=== PATIENT | female | born 1955 | race Caucasian/White ===

== ENCOUNTER → 2016-06-11 | Outpatient (CLI) | payer BC, MEDICARE ==
[~2016-06-11] MED LIST: ALBU8.5H INH; AMLO10TA62 PO; CETI10CA19 PO; CYCL-83 PO; FLUT1DIS3 ORAL INH; IOHEXOL 300 MG/ML 100ml INJECTION ONE; MELA3TAB30 PO; NORMAL SALINE 100 ML ONE; OXYC-541 PO; SALINE FLUSH 10ml SYRINGE ONE; SERT-88 PO
[2016-06-11 08:36] LABS: HCT - HEMATOCRIT 41.3 % (36-46); HGB - HEMOGLOBIN 13.5 GM/DL (12-16); MEAN CORPUSCULAR HGB 31.8 UUG (26-34); MEAN CORPUSCULAR HGB CONC(MCHC 32.7 GM/DL (31-37); MEAN CORPUSCULAR VOLUME 97.4 UM3 (80-100); MEAN PLATELET VOLUME 9.6 UM3 (9.4-12.4); RED BLOOD COUNT 4.24 M/MM3 (4.00-5.20); WBC - WHITE BLOOD COUNT 8.9 T/MM3 (4.5-11.0)
[2016-06-11 08:46] LABS: ALBUMIN 4.1 G/DL (3.5-5.0); ALBUMIN/GLOBULIN RATIO 1.3 RATIO (1.1-2.2); ALKALINE PHOSPHATASE 101 U/L (38-126); ALT (SGPT) 40 U/L (9-52); ANION GAP 13 MEQ/L (5-15); AST (SGOT) 25 U/L (14-36); BUN/CREATININE RATIO 26 RATIO (6-26); CALCIUM 9.6 MG/DL (8.4-10.2); CHLORIDE 104 MEQ/L (98-107); CO2 - CARBON DIOXIDE 28 MEQ/L (22-30); CREATININE 0.7 MG/DL (0.7-1.2); GLOMERULAR FILTRATION RATE 85; GLUCOSE 94 MG/DL (65-110); LDH 388 U/L (313-618); SODIUM 145 MEQ/L (134-144); TOTAL PROTEIN 7.3 G/DL (6.3-8.2)
[2016-06-11 09:35] LABS: ANISOCYTOSIS 1+; BAND NEUTROPHILS # 0.1 T/MM3; BASOPHILS # (MANUAL) 0.2 T/MM3 (0-0.2); EOSINOPHILS # (MANUAL) 0.2 T/MM3 (0-0.5); LYMPHOCYTES # (MANUAL) 1.7 T/MM3 (1-4.8); MONOCYTES # (MANUAL) 0.5 T/MM3 (0-0.8); NEUTROPHILS #(MANUAL)-ABSOLUTE 6.2 T/MM3 (1.8-7.7); TOTAL CELLS COUNTED 100 %
--- NOTE | 2016-06-11 10:21 | DI ---
Indication: ITS.REASON: C01 Malignant neoplasm of base of tongue PROCEDURE: CT NECK/CHEST/ABD/PELVIS W/C: Encounter: Subsequent Comparison: CT neck, chest, abdomen and pelvis dated December 05, 2015 Technique: Axial CT images were performed through the neck, chest, abdomen and pelvis after the administration of intravenous contrast. Coronal and sagittal two-dimensional reformats. Automated Exposure Control and Iterative Reconstruction dose reducing techniques were utilized. Contrast: Omnipaque 300 99 mL Findings: Neck: Thyroid gland appears normal. Surgical clips in the right neck and postoperative changes. Persistent region of asymmetric enhancement in the right tongue base area measuring 1.3 cm in diameter, stable from the prior exam. No new or enlarging adenopathy identified within the neck. Salivary glands appear stable. Skull base is unremarkable. Skeletal structures are unchanged. Chest: Severe emphysema. No pneumonia, pleural effusion or pneumothorax. No new pulmonary nodules or masses. Calcified granuloma in the left lower lobe. Large left breast calcification. No axillary or mediastinal adenopathy. Heart size is normal. No pericardial effusion. Abdomen/pelvis: The liver is stable and normal. The gallbladder, spleen, pancreas and adrenal glands are within normal limits. Kidneys are unchanged. Scattered atherosclerotic plaque in the arterial vasculature. No obvious abdominal or pelvic adenopathy. Evaluation is somewhat limited due to the lack of intra-abdominal fat. Bladder is stable in appearance. Uterus is surgically absent. No free fluid. No evidence of a bowel obstruction. Bone windows show degenerative changes in the spine but no lytic or blastic osseous lesion. Impression: Stable exam without evidence of new or worsening metastatic disease in the neck, chest, abdomen or pelvis. .
== END ==
LOC: IMA 08:10
PROVIDERS: ATTEND Internal Medicine Hematology & Oncology
DX: C01 Malignant neoplasm of base of tongue (principal); J43.9 Emphysema, unspecified; Z98.890 Other specified postprocedural states
CPT/HCPCS: 36415; 70491; 71260; 74177; 80053; 83615; 85025; J7050; Q9967

== ENCOUNTER 2016-06-30 16:29 | Emergency (ER) | payer BC, MEDICARE ==
[~2016-06-30] VITALS: Ht 147.3 cm; Wt 66.6 kg
[~2016-06-30 16:29] MED LIST changes: -IOHEXOL 300 MG/ML 100ml INJECTION ONE; -NORMAL SALINE 100 ML ONE; -SALINE FLUSH 10ml SYRINGE ONE
[2016-06-30 16:33] VITALS: TEMP 98.5; Ht 147.3 cm; Wt 66.6 kg
--- OUTSIDE RECORDS SUMMARY | 2016-06-30 16:34 | XMS REPORT | Referral Summary ---
Author Author [facility] Organization [facility] Address Unknown Phone Unavailable Care Team Providers Care Composing Room Supervisor Name Role Phone Nigel Crowley Primary Care Physician [phone] Encounter VC Date(s): 07/04/15 - 07/04/15 [facility], [address] [place] [id number] Discharge Disposition: 01-Home or Self Care Attending Physician: Jeffrey Crowley MD Admitting Physician: Jeffrey Crowley MD Vital Signs Most recent to 1 oldest [Reference Range]: Peripheral Pulse 92 bpm Rate [60-100 bpm] (07/04/15 11:30 AM) Blood Pressure 100/76 mmHg [90-140/60-90 mmHg] (07/04/15 11:30 AM) Mean Arterial 84 mmHg Pressure, Cuff (07/04/15 11:30 AM) SpO2 99 % (07/04/15 11:30 AM) Problem List Condition Effective Dates Status Health Status Informant Anginal Active pain(Confirmed) Arthritis(Confirmed) Active ASTHMA(Confirmed) Resolved breast Resolved cancer(Confirmed) Bronchitis(Confirmed Resolved ) RT. Cervical 06/06/13 Active Adenopathy(Confirmed )1 COPD (chronic Active obstructive pulmonary disease)(Confirmed) Ovarian 04/1996 Active cyst(Confirmed)2, 3 Depression(Confirmed Resolved ) Hay fever(Confirmed) Resolved High blood Resolved pressure(Confirmed) Breast Active cancer(Confirmed)4 Cancer of Active neck(Confirmed) Acute pain in right Active eye(Confirmed) Stroke(Confirmed) Resolved 1RT.Cervical lymph node biobsy/Informed pt. set up to see ENT/ pt.appt. with 06/07/2023 2endometriosis seeding 3March 1996 BSO 4October 1996 Left breast lumpectomy Allergies, Adverse Reactions, Alerts Substance Reaction Severity Status amoxicillin Active amoxicillin-clavulanate Active celecoxib Active Medications Advair Diskus 250 mcg-50 mcg inhalation powder 1 puffs, Inhalation, BID, # 28 Each, 0 Refill(s), Pharmacy: [facility] [id number] Start Date: 04/17/15 Status: Ordered amLODIPine 10 mg oral tablet 10 mg 1 tabs, Oral, Daily, MUST SCHEDULE A FOLLOW UP APPOINTMENT FOR FURTHER REFILLS, # 90 tabs, 0 Refill(s), Pharmacy: [facility] [id number], 1 tabs Oral Daily,Instr:MUST SCHEDULE A FOLLOW UP APPOINTMENT FOR FURTHER REFILLS Start Date: 05/21/15 Status: Ordered Bactrim DS 800 mg-160 mg oral tablet 1 tabs, Oral, BID, X 10 days, # 20 tabs, 0 Refill(s), Pharmacy: [facility] [id number] Start Date: 07/04/15 Stop Date: 07/14/15 Status: Ordered cyclobenzaprine 10 mg oral tablet See Instructions, TAKE ONE TABLET BY MOUTH TWICE DAILY, # 60 tabs, 1 Refill(s), Pharmacy: [facility] [id number], TAKE ONE TABLET BY MOUTH TWICE DAILY Start Date: 03/21/15 Status: Ordered Melatonin Bedtime (once a day), as needed for insomnia, 0 Refill(s) Start Date: 02/07/15 Status: Ordered oxyCODONE 5 mg oral tablet 5 mg 1 tabs, Oral, q6hr, as needed for pain, # 60 tabs, 0 Refill(s) Start Date: 05/28/15 Status: Ordered ProAir HFA 90 mcg/inh inhalation aerosol 2 puffs, Inhalation, QID, as needed for wheezing, # 2 Each, 0 Refill(s), Pharmacy: [facility] [id number] Start Date: 04/04/15 Status: Ordered sertraline 100 mg oral tablet See Instructions, TAKE ONE TABLET BY MOUTH ONCE DAILY, # 30 tabs, eRx: [facility] [id number], TAKE ONE TABLET BY MOUTH ONCE DAILY Start Date: 07/04/15 Status: Ordered sertraline 100 mg oral tablet 100 mg 1 tabs, Oral, Daily, # 30 tabs, 3 Refill(s), Pharmacy: [facility] [id number], 1 tabs Oral Daily Start Date: 03/05/15 Status: Ordered ZyrTEC 10 mg oral tablet 1 tabs, Oral, Daily, # 30 tabs, 0 Refill(s) Start Date: 09/28/13 Status: Ordered Results Urinalysis Most recent to 1 oldest [Reference Range]: UA Color Yellow (07/04/15 11:27 AM) UA Appear Clear (07/04/15 11:27 AM) UA pH [5.0-8.0] 6.5 (07/04/15 11:27 AM) UA Leuk Est Trace [Negative] *ABN* (07/04/15 11:27 AM) UA Nitrite Negative [Negative] (07/04/15 11:27 AM) UA Protein Pos 2+ [Negative] *ABN* (07/04/15 11:27 AM) UA Glucose Negative [Negative] (07/04/15 11:27 AM) UA Ketones Negative [Negative] (07/04/15 11:27 AM) UA Urobilinogen 0.2 mg/dL [<=1.0 mg/dL] (07/04/15 11:27 AM) UA Bili [Negative] Negative (07/04/15 11:27 AM) UA Blood [Negative] Trace *ABN* (07/04/15 11:27 AM) UA Spec Grav 1.015 [1.003-1.030] (07/04/15 11:27 AM) Type Clean Catch (07/04/15 11:27 AM) UA WBC [0-4] 0-2 (07/04/15 11:27 AM) UA RBC [0-2] 0-2 (07/04/15 11:27 AM) Epithelial Cells 2-5 (07/04/15 11:27 AM) UA Hyal Cast 1-3 (07/04/15 11:27 AM) UA Mucous Present (07/04/15 11:27 AM) Immunizations Vaccine Date Refusal Reason tetanus/diphth/pertuss (Tdap) adult/adol 10/22/10 pneumococcal 23-polyvalent vaccine 10/22/10 tetanus-diphth toxoids (Td) adult/adol 05/15/98 Procedures Procedure Date Related Diagnosis Body Site RT.Cervical lymph node biopsy1 06/06/13 Left breast lumpectomy 11/1996 BSO - Bilateral salpingo-oophorectomy2 04/1996 Biopsy of breast Hysterectomy3 lumpectomy 1Informed pt. set up to see ENT/ pt.appt. with 06/06/2013 2Ovarian cyst, endometriosis seeding 90059/1984 Social History Social History Type Response Smoking Status Current every day smoker; Type: Cigarettes; Tobacco use per day: 1 Pack Assessment and Plan Extracted from: Title: Ambulatory Patient Education Author: Jeffrey Crowley MD Date: Family Medicine Dysuria Dysuria is the medical term for pain with urination. There are many causes for dysuria, but urinary tract infection is the most common. If a urinalysis was performed it can show that there is a urinary tract infection. A urine culture confirms that you or your child is sick. You will need to follow up with a healthcare provider because: If a urine culture was done you will need to know the culture results and treatment recommendations. If the urine culture was positive, you or your child will need to be put on antibiotics or know if the antibiotics prescribed are the right antibiotics for your urinary tract infection. If the urine culture is negative (no urinary tract infection), then other causes may need to be explored or antibiotics need to be stopped. Today laboratory work may have been done and there does not seem to be an infection. If cultures were done they will take at least 24 to 48 hours to be completed. Today x-rays may have been taken and they read as normal. No cause can be found for the problems. The x-rays may be re-read by a radiologist and you will be contacted if additional findings are made. You or your child may have been put on medications to help with this problem until you can see your primary caregiver. If the problems get better, see your primary caregiver if the problems return. If you were given antibiotics ( medications which kill germs), take all of the mediations as directed for the full course of treatment. If laboratory work was done, you need to find the results. Leave a telephone number where you can be reached. If this is not possible, make sure you find out how you are to get test results. HOME CARE INSTRUCTIONS Drink lots of fluids. For adults, drink eight, 8 ounce glasses of clear juice or water a day. For children, replace fluids as suggested by your caregiver. Empty the bladder often. Avoid holding urine for long periods of time. After a bowel movement, women should cleanse front to back, using each tissue only once. Empty your bladder before and after sexual intercourse. Take all the medicine given to you until it is gone. You may feel better in a few days, but TAKE ALL MEDICINE. Avoid caffeine, tea, alcohol and carbonated beverages, because they tend to irritate the bladder. In men, alcohol may irritate the prostate. Only take [id number] or prescription medicines for pain, discomfort , or fever as directed by your caregiver. If your caregiver has given you a follow-up appointment, it is very important to keep that appointment. Not keeping the appointment could result in a chronic or permanent injury, pain, and disability. If there is any problem keeping the appointment, you must call back to this facility for assistance. SEEK IMMEDIATE MEDICAL CARE IF: Back pain develops. A fever develops. There is nausea (feeling sick to your stomach) or vomiting (throwing up). Problems are no better with medications or are getting worse. MAKE SURE YOU: Understand these instructions. Will watch your condition. Will get help right away if you are not doing well or get worse. This information is not intended to replace advice given to you by your health care provider. Make sure you discuss any questions you have with your health care provider. Document Released: 10/24/2004 Document Revised: 04/19/2012 Document Reviewed: [employer] Patient Information 2015 [employer]. No follow up information was provided. Extracted from: Title: Office Visit Note Author: Jeffrey Crowley MD Date: 07/04/15 Assessment/Plan Urinary pain With the abnormal UA we will start patient on Septra DS bid and await for the culture. If the discharge continue then she will need a vaginal ex. Ordered: Office Visit Level 3 Est 91957 Orders: sertraline, See Instructions, TAKE ONE TABLET BY MOUTH ONCE DAILY, # 30 tabs, [facility]: [id number], TAKE ONE TABLET BY MOUTH ONCE DAILY sulfamethoxazole-trimethoprim, 1 tabs, Oral, BID, X 10 days, # 20 tabs, 0 Refill(s), Pharmacy: [id number]
--- OUTSIDE RECORDS SUMMARY | 2016-06-30 16:34 | XMS REPORT | Referral Summary ---
Author Author Via [facility] Ty Newton, [facility] Medicine Organization Via [facility] Craig [facility] Address Unknown Phone Unavailable Care Team Providers Care Civil Designer Name Role Phone Nigel Crowley Primary Care Physician [phone] Encounter VC Date(s): 02/07/15 - 02/07/15 [facility] Ty Newton, [address] [place] [address] Discharge Diagnosis: Sinusitis Discharge Diagnosis: COPD (chronic obstructive pulmonary disease) Discharge Disposition: 01-Home or Self Care Attending Physician: Jeffrey Crowley MD Vital Signs Most recent to 1 oldest [Reference Range]: Blood Pressure 122/80 mmHg [90-140/60-90 mmHg] (02/07/15 3:41 PM) Problem List Condition Effective Dates Status Health [...] amoxicillin Active amoxicillin-clavulanate Active celecoxib Active Medications amLODIPine 10 mg oral tablet 10 mg 1 tabs, Oral, Daily, APPOINTMENT NEEDED PRIOR TO ADDITIONAL REFILL., # 15 tabs, 0 Refill(s), Pharmacy: [id number], 1 tabs Oral Daily,Instr: APPOINTMENT NEEDED PRIOR TO ADDITIONAL REFILL. Start Date: 01/31/15 Status: Ordered Cipro 500 mg oral tablet 500 mg 1 tabs, Oral, q12hr, X 10 days, # 20 tabs, 0 Refill(s), Pharmacy: [id number], 1 tabs Oral q12hr,x10 days Start Date: 02/07/15 Stop Date: 02/17/15 Status: Ordered cyclobenzaprine 10 mg oral tablet See Instructions, TAKE ONE TABLET BY MOUTH TWICE DAILY, # 60 tabs, 1 Refill(s), Pharmacy: [id number], TAKE ONE TABLET BY MOUTH TWICE DAILY Start Date: 09/22/14 Status: Ordered Melatonin Bedtime (once a day), as needed for insomnia, 0 Refill(s) Start Date: 02/07/15 Status: Ordered oxyCODONE 5 mg oral tablet 5 mg 1 tabs, Oral, q6hr, as needed for pain, # 60 tabs, 0 Refill(s) Start Date: 02/07/15 Status: Ordered sertraline 100 mg oral tablet See Instructions, TAKE ONE TABLET BY MOUTH ONCE DAILY, # 30 tabs, eRx: [id number], TAKE ONE TABLET BY MOUTH ONCE DAILY Start Date: 01/31/15 Status: Ordered Ventolin HFA 90 mcg/inh inhalation aerosol 2 puffs, Inhalation, QID, as needed for wheezing, 0 Refill(s) Start Date: 07/21/13 Status: Ordered ZyrTEC 10 mg oral tablet 1 tabs, Oral, Daily, # 30 tabs, 0 Refill(s) Start Date: 09/28/13 Status: Ordered Results No data available for this section Immunizations Vaccine Date Refusal Reason tetanus/diphth/pertuss (Tdap) adult/adol 10/22/10 pneumococcal 23-polyvalent vaccine 10/22/10 tetanus-diphth toxoids (Td) adult/adol 05/15/98 Procedures Procedure Date Related Diagnosis Body Site RT.Cervical lymph node biopsy1 06/06/13 Left breast lumpectomy 11/1996 BSO - Bilateral salpingo-oophorectomy2 04/1996 Biopsy of breast Hysterectomy3 lumpectomy 1Informed pt. set up to see ENT/ pt.appt. with 06/06/2013 2Ovarian cyst, endometriosis seeding 91293/1984 Social History Social History Type Response Smoking Status Current every day smoker; Type: Cigarettes; Tobacco use per day: 1 Pack Assessment and Plan Extracted from: Title: Ambulatory Patient Education Author: Jeffrey Crowley MD Date: Allergy Sinusitis Sinusitis is redness, soreness, and inflammation of the paranasal sinuses. Paranasal sinuses are air pockets within the bones of your face (beneath the eyes, the middle of the forehead, or above the eyes). In healthy paranasal sinuses, mucus is able to drain out, and air is able to circulate through them by way of your nose. However, when your paranasal sinuses are inflamed, mucus and air can become trapped. This can allow bacteria and other germs to grow and cause infection. Sinusitis can develop quickly and last only a short time (acute) or continue over a long period (chronic). Sinusitis that lasts for more than 12 weeks is considered chronic. CAUSES Causes of sinusitis include: Allergies. Structural abnormalities, such as displacement of the cartilage that separates your nostrils (deviated septum), which can decrease the air flow through your nose and sinuses and affect sinus drainage. Functional abnormalities, such as when the small hairs (cilia) that line your sinuses and help remove mucus do not work properly or are not present. SIGNS AND SYMPTOMS Symptoms of acute and chronic sinusitis are the same. The primary symptoms are pain and pressure around the affected sinuses. Other symptoms include: Upper toothache. Earache. Headache. Bad breath. Decreased sense of smell and taste. A cough, which worsens when you are lying flat. Fatigue. Fever. Thick drainage from your nose, which often is green and may contain pus ( purulent). Swelling and warmth over the affected sinuses. DIAGNOSIS Your health care provider will perform a physical exam. During the exam, your health care provider may: Look in your nose for signs of abnormal growths in your nostrils (nasal polyps). Tap over the affected sinus to check for signs of infection. View the inside of your sinuses (endoscopy) using an imaging device that has a light attached (endoscope). If your health care provider suspects that you have chronic sinusitis, one or more of the following tests may be recommended: Allergy tests. Nasal culture. A sample of mucus is taken from your nose, sent to a lab, and screened for bacteria. Nasal cytology. A sample of mucus is taken from your nose and examined by your health care provider to determine if your sinusitis is related to an allergy. TREATMENT Most cases of acute sinusitis are related to a viral infection and will resolve on their own within 10 days. Sometimes medicines are prescribed to help relieve symptoms (pain medicine, decongestants, nasal steroid sprays, or saline sprays) . However, for sinusitis related to a bacterial infection, your health care provider will prescribe antibiotic medicines. These are medicines that will help kill the bacteria causing the infection. Rarely, sinusitis is caused by a fungal infection. In theses cases, your health care provider will prescribe antifungal medicine. For some cases of chronic sinusitis, surgery is needed. Generally, these are cases in which sinusitis recurs more than 3 times per year, despite other treatments. HOME CARE INSTRUCTIONS Drink plenty of water. Water helps thin the mucus so your sinuses can drain more easily. Use a humidifier. Inhale steam 3 to 4 times a day (for example, sit in the bathroom with the shower running). Apply a warm, moist washcloth to your face 3 to 4 times a day, or as directed by your health care provider. Use saline nasal sprays to help moisten and clean your sinuses. Take medicines only as directed by your health care provider. If you were prescribed either an antibiotic or antifungal medicine, finish it all even if you start to feel better. SEEK IMMEDIATE MEDICAL CARE IF: You have increasing pain or severe headaches. You have nausea, vomiting, or drowsiness. You have swelling around your face. You have vision problems. You have a stiff neck. You have difficulty breathing. MAKE SURE YOU: Understand these instructions. Will watch your condition. Will get help right away if you are not doing well or get worse. Document Released: 01/26/2006 Document Revised: 06/12/2014 Document Reviewed: [employer] Patient Information 2015 [employer]. This information is not intended to replace advice given to you by your health care provider. Make sure you discuss any questions you have with your health care provider. Family Medicine Chronic Obstructive Pulmonary Disease Chronic obstructive pulmonary disease (COPD) is a common lung condition in which airflow from the lungs is limited. COPD is a general term that can be used to describe many different lung problems that limit airflow, including both chronic bronchitis and emphysema. If you have COPD, your lung function will probably never return to normal, but there are measures you can take to improve lung function and make yourself feel better. CAUSES Smoking (common). Exposure to secondhand smoke. Genetic problems. Chronic inflammatory lung diseases or recurrent infections. SYMPTOMS Shortness of breath, especially with physical activity. Deep, persistent (chronic) cough with a large amount of thick mucus. Wheezing. Rapid breaths (tachypnea). [place] or bluish discoloration (cyanosis) of the skin, especially in fingers , toes, or lips. Fatigue. Weight loss. Frequent infections or episodes when breathing symptoms become much worse ( exacerbations). Chest tightness. DIAGNOSIS Your health care provider will take a medical history and perform a physical examination to make the initial diagnosis. Additional tests for COPD may include: Lung (pulmonary) function tests. Chest X-ray. CT scan. Blood tests. TREATMENT Treatment available to help you feel better when you have COPD includes: Inhaler and nebulizer medicines. These help manage the symptoms of COPD and make your breathing more comfortable. Supplemental oxygen. Supplemental oxygen is only helpful if you have a low oxygen level in your blood. Exercise and physical activity. These are beneficial for nearly all people with COPD. Some people may also benefit from a pulmonary rehabilitation program. HOME CARE INSTRUCTIONS Take all medicines (inhaled or pills) as directed by your health care provider. Avoid bczl-kzk-zwjpuvm medicines or cough syrups that dry up your airway ( such as antihistamines) and slow down the elimination of secretions unless instructed otherwise by your health care provider. If you are a smoker, the most important thing that you can do is stop smoking. Continuing to smoke will cause further lung damage and breathing trouble. Ask your health care provider for help with quitting smoking. He or she can direct you to community resources or hospitals that provide support. Avoid exposure to irritants such as smoke, chemicals, and fumes that aggravate your breathing. Use oxygen therapy and pulmonary rehabilitation if directed by your health care provider. If you require home oxygen therapy, ask your health care provider whether you should purchase a pulse oximeter to measure your oxygen level at home. Avoid contact with individuals who have a contagious illness. Avoid extreme temperature and humidity changes. Eat healthy foods. Eating smaller, more frequent meals and resting before meals may help you maintain your strength. Stay active, but balance activity with periods of rest. Exercise and physical activity will help you maintain your ability to do things you want to do. Preventing infection and hospitalization is very important when you have COPD. Make sure to receive all the vaccines your health care provider recommends , especially the pneumococcal and influenza vaccines. Ask your health care provider whether you need a pneumonia vaccine. Learn and use relaxation techniques to manage stress. Learn and use controlled breathing techniques as directed by your health care provider. Controlled breathing techniques include: Pursed lip breathing. Start by breathing in (inhaling) through your nose for 1 second. Then, purse your lips as if you were going to whistle and breathe out (exhale) through the pursed lips for 2 seconds. Diaphragmatic breathing. Start by putting one hand on your abdomen just above your waist. Inhale slowly through your nose. The hand on your abdomen should move out. Then purse your lips and exhale slowly. You should be able to feel the hand on your abdomen moving in as you exhale. Learn and use controlled coughing to clear mucus from your lungs. Controlled coughing is a series of short, progressive coughs. The steps of controlled coughing are: 1. Lean your head slightly forward. 2. Breathe in deeply using diaphragmatic breathing. 3. Try to hold your breath for 3 seconds. 4. Keep your mouth slightly open while coughing twice. 5. Spit any mucus out into a tissue. 6. Rest and repeat the steps once or twice as needed. SEEK MEDICAL CARE IF: You are coughing up more mucus than usual. There is a change in the color or thickness of your mucus. Your breathing is more labored than usual. Your breathing is faster than usual. SEEK IMMEDIATE MEDICAL CARE IF: You have shortness of breath while you are resting. You have shortness of breath that prevents you from: Being able to talk. Performing your usual physical activities. You have chest pain lasting longer than 5 minutes. Your skin color is more cyanotic than usual. You measure low oxygen saturations for longer than 5 minutes with a pulse oximeter. MAKE SURE YOU: Understand these instructions. Will watch your condition. Will get help right away if you are not doing well or get worse. Document Released: 11/05/2005 Document Revised: 06/12/2014 Document Reviewed: [employer] Patient Information 2015 [employer]. This information is not intended to replace advice given to you by your health care provider. Make sure you discuss any questions you have with your health care provider. No follow up information was provided. Extracted from: Title: Office Visit Note Author: Jeffrey Crowley MD Date: 02/07/15 Assessment/Plan COPD (chronic obstructive pulmonary disease) Again have suggested to stop the nicotine. Ordered: Office Visit Level 4 Est 13033 Sinusitis Rx for medication below. Ordered: Office Visit Level 4 Est 77421 Orders: ciprofloxacin, 500 mg 1 tabs, Oral, q12hr, X 10 days, # 20 tabs, 0 Refill(s), Pharmacy: [facility], 1 tabs Oral q12hr,x10 days oxyCODONE, 5 mg 1 tabs, Oral, q6hr, as needed for pain, # 60 tabs, 0 Refill(s)
--- OUTSIDE RECORDS SUMMARY | 2016-06-30 16:34 | XMS REPORT | Referral Summary ---
Author Author [facility] Ty Newton [facility] Medicine Organization [facility] Ty Newton [facility] Address Unknown Phone Unavailable Care Team Providers Care Welt Sole Layer Name Role Phone Nigel Crowley Primary Care Physician [phone] Encounter VC Date(s): 02/13/16 - 02/13/16 [facility] Ty Newton [address] [place] [address] Discharge Disposition: 01-Home or Self Care Attending Physician: Jeffrey Crowley MD Admitting Physician: Jeffrey Crowley MD Vital Signs Most recent to 1 oldest [Reference Range]: Peripheral Pulse 60 bpm Rate [60-100 bpm] (02/13/16 1:47 PM) Blood Pressure 106/78 mmHg [90-140/60-90 mmHg] (02/13/16 1:47 PM) SpO2 97 % (02/13/16 1:47 PM) Problem List Condition Effective Dates Status [...] Reaction Severity Status amoxicillin Active amoxicillin-clavulanate Active Augmentin Active celecoxib Active Medications Advair Diskus 250 mcg-50 mcg inhalation powder 1 puffs, Inhalation, BID, # 28 Each, 0 Refill(s), Pharmacy: [place] [id number] Start Date: 04/17/15 Status: Ordered amLODIPine 10 mg oral tablet See Instructions, TAKE ONE TABLET BY MOUTH ONCE DAILY, # 90 tabs, 1 Refill(s), Pharmacy: [place] [id number], TAKE ONE TABLET BY MOUTH ONCE DAILY Start Date: 01/22/16 Status: Ordered Cipro 500 mg oral tablet 500 mg 1 tabs, Oral, q12hr, X 10 days, # 20 tabs, 0 Refill(s), Pharmacy: [place] [id number], 1 tabs Oral q12hr,x10 days Start Date: 02/13/16 Stop Date: 02/23/16 Status: Ordered cyclobenzaprine 10 mg oral tablet See Instructions, TAKE ONE TABLET BY MOUTH TWICE DAILY, # 60 tabs, eRx: [place] [id number], TAKE ONE TABLET BY MOUTH TWICE DAILY Start Date: 01/08/16 Status: Ordered Melatonin Bedtime (once a day), as needed for insomnia, 0 Refill(s) Start Date: 02/07/15 Status: Ordered oxyCODONE 5 mg oral tablet 5 mg 1 tabs, Oral, q6hr, as needed for pain, # 60 tabs, 0 Refill(s) Start Date: 01/07/16 Status: Ordered ProAir HFA 90 mcg/inh inhalation aerosol 2 puffs, Inhalation, QID, as needed for wheezing, # 2 Each, 0 Refill(s), Pharmacy: [place] [id number] Start Date: 01/22/16 Status: Ordered sertraline 100 mg oral tablet See Instructions, TAKE ONE TABLET BY MOUTH ONCE DAILY, # 30 tabs, eRx: [place] [id number] Start Date: 02/01/16 Status: Ordered ZyrTEC 10 mg oral tablet 10 mg 1 tabs, Oral, Daily, # 30 tabs, 0 Refill(s), Pharmacy: [place] [id number], 1 tabs Oral Daily Start Date: 01/22/16 Status: Ordered Results Urinalysis Most recent to 1 oldest [Reference Range]: UA Color Yellow (02/13/16 2:50 PM) UA Appear Clear (02/13/16 2:50 PM) UA pH [5.0-8.0] 6.0 (02/13/16 2:50 PM) UA Leuk Est Pos 1+ [Negative] *ABN* (02/13/16 2:50 PM) UA Nitrite Negative [Negative] (02/13/16 2:50 PM) UA Protein Pos 1+ [Negative] *ABN* (02/13/16 2:50 PM) UA Glucose Negative [Negative] (02/13/16 2:50 PM) UA Ketones Trace [Negative] *ABN* (02/13/16 2:50 PM) UA Urobilinogen 0.2 mg/dL [<1.0 mg/dL] (02/13/16 2:50 PM) UA Bili [Negative] Negative (02/13/16 2:50 PM) UA Blood [Negative] Negative (02/13/16 2:50 PM) UA Spec Grav 1.020 [1.003-1.030] (02/13/16 2:50 PM) Type Clean Catch (02/13/16 2:50 PM) UA WBC [0-4] 2-5 (02/13/16 2:50 PM) UA RBC [0-4] 0-4 (02/13/16 2:50 PM) Epithelial Cells 10-20 (02/13/16 2:50 PM) UA Mucous Present (02/13/16 2:50 PM) Immunizations Given and Recorded Vaccine Date Status Refusal Reason tetanus/diphth/pertuss (Tdap) adult/adol 10/22/10 Recorded pneumococcal 23-polyvalent vaccine 10/22/10 Recorded tetanus-diphth toxoids (Td) adult/adol 05/15/98 Given Procedures Procedure Date Related Diagnosis Body Site RT.Cervical lymph node biopsy1 06/06/13 Left breast lumpectomy 11/1996 BSO - Bilateral salpingo-oophorectomy2 04/1996 Biopsy of breast Hysterectomy3 lumpectomy 1Informed pt. set up to see ENT/ pt.appt. with 06/06/2013 2Ovarian cyst, endometriosis seeding 47044/1983 Social History Social History Type Response Smoking Status Current every day smoker; Type: Cigarettes; Tobacco use per day: 1 Pack Assessment and Plan Extracted from: Title: Ambulatory Patient Education Author: Jeffrey Crowley MD Date: 02/12 Obstetrics and Gynecology Abnormal Uterine Bleeding Abnormal uterine bleeding means bleeding from the vagina that is not your normal menstrual period. This can be: Bleeding or spotting between periods. Bleeding after sex (sexual intercourse). Bleeding that is heavier or more than normal. Periods that last longer than usual. Bleeding after menopause. There are many problems that may cause this. Treatment will depend on the cause of the bleeding. Any kind of bleeding that is not normal should be reviewed by your doctor. HOME CARE Watch your condition for any changes. These actions may lessen any discomfort you are having: Do not use tampons or douches as told by your doctor. Change your pads often. You should get regular pelvic exams and Pap tests. Keep all appointments for tests as told by your doctor. GET HELP IF: You are bleeding for more than 1 week. You feel dizzy at times. GET HELP RIGHT AWAY IF: You pass out. You have to change pads every 15 to 30 minutes. You have belly pain. You have a fever. You become sweaty or weak. You are passing large blood clots from the vagina. You feel sick to your stomach (nauseous) and throw up (vomit). MAKE SURE YOU: Understand these instructions. Will watch your condition. Will get help right away if you are not doing well or get worse. This information is not intended to replace advice given to you by your health care provider. Make sure you discuss any questions you have with your health care provider. Document Released: 11/23/2009 Document Revised: 01/31/2014 Document Reviewed: [employer] Patient Education 2016 [employer] No follow up information was provided. Extracted from: Title: Office Visit Note Author: Jeffrey Crowley MD Date: 02/13/16 Assessment/Plan Vaginal discharge Rx for Cipro 500mg bid and will set patient up for a pelvic sonogram. ALMA was found to be negative. Ordered: Chlamydia/GC Nucleic Acid Screen Genital Culture Office Visit Level 4 Est 84129 Urinalysis with Culture if Indicated
--- OUTSIDE RECORDS SUMMARY | 2016-06-30 16:34 | XMS REPORT | Referral Summary ---
Author Organization Unknown Address Unknown Phone Unavailable Care Team Providers Care Carbonator Name Role Phone Nigel Crowley Primary Care Physician [phone] Encounter VC ISMAEL [id number] Date(s): 04/20/14 - 04/20/14 [facility], [facility] [address] [place] [address] [facility] [place] Discharge Diagnosis: Abnormal finding on thyroid function test Discharge Disposition: Home or Self Care Attending Physician: Precious Ko MD Admitting Physician: Precious Ko MD Vital Signs Most recent to 1 oldest [Reference Range]: Peripheral Pulse 78 bpm Rate [60-100 bpm] (04/20/14 9:34 AM) Blood Pressure 100/68 mmHg [90-140/60-90 mmHg] (04/20/14 9:34 AM) Problem List Condition Effective Dates Status [...] inhalation powder 1 puffs, Inhalation, BID, # 180 Each, 0 Refill(s) Start Date: 09/28/13 Status: Ordered cyclobenzaprine 10 mg oral tablet See Instructions, TAKE ONE TABLET BY MOUTH TWICE DAILY, # 60 tabs, 0 Refill(s), Pharmacy: [id number], TAKE ONE TABLET BY MOUTH TWICE DAILY Special Instructions: TAKE ONE TABLET BY MOUTH TWICE DAILY Start Date: 03/07/14 Status: Ordered Norvasc 10 mg oral tablet 1 tabs, Oral, Daily, # 90 tabs, 0 Refill(s), Pharmacy: [id number], 1 tabs Oral Daily Start Date: 02/20/14 Status: Ordered Norvasc 10 mg oral tablet 1 tabs, Oral, Daily, 0 Refill(s) Start Date: 07/21/13 Status: Ordered oxyCODONE 5 mg oral tablet 1 tabs, Oral, q6hr, as needed for pain, # 60 tabs, 0 Refill(s) Start Date: 01/30/14 Status: Ordered Ventolin HFA 90 mcg/inh inhalation aerosol 2 puffs, Inhalation, QID, as needed for wheezing, 0 Refill(s) Start Date: 07/21/13 Status: Ordered Zoloft 100 mg oral tablet 1 tabs, Oral, Daily, # 30 tabs, 0 Refill(s), Pharmacy: [id number], 1 tabs Oral Daily Start Date: 04/19/14 Status: Ordered ZyrTEC 10 mg oral tablet [...] pt.appt. with 06/06/2013 2Ovarian cyst, endometriosis seeding 49916/1984 Social History Social History Type Response Smoking Status Current every day smoker; Type: Cigarettes; Tobacco use per day: 1 Pack Assessment and Plan No data available for this section
--- OUTSIDE RECORDS SUMMARY | 2016-06-30 16:34 | XMS REPORT | Continuity of Care Document ---
Author Author [facility] Organization [facility] Address Unknown Phone Unavailable Care Team Providers Care Construction Analyst Name Role Phone Jeffrey Crowley Primary Care Physician [phone] Source Comments Some departments are not documenting in the electronic medical record. If you do not see the information that you expected, contact Release of Information in the Health Information Management department at [phone] for further assistance in locating additional records.[facility] Active Allergies and Adverse Reactions Allergen Noted Date Severity Reactions Comments Augmentin 07/01/2013 HIVES Celebrex 07/01/2013 SEE COMMENTS BLEEDING Current Medications Prescription Sig. Disp. Refills Start End Date Status Date amLODIPine (NORVASC) 10 Take 10 mg by mouth at Active mg tablet bedtime daily. sertraline (ZOLOFT) 100 Take 100 mg by mouth Active mg tablet every morning. cetirizine (ZYRTEC) 10 mg Take 10 mg by mouth Active tablet daily. albuterol (VENTOLIN HFA, Inhale 2 Puffs by mouth Active PROAIR HFA) 90 every 6 hours as needed. mcg/actuation inhaler FLUTICASONE/SALMETEROL Inhale by mouth. Active (ADVAIR DISKUS IN) acetaminophen (TYLENOL) Take 2 Tabs by mouth 30 Tab 1 08/31/19 Active 325 mg tablet every 4 hours as needed 14 for Pain. oxyCODONE (ROXICODONE) 1 Take 5-10 mL by mouth 500 mL 0 08/31/19 Active mg/mL oral solution every 4 hours as needed 14 docusate (COLACE) 50 mg/5 10 mL twice daily. 480 mL 0 08/31/19 Active mL oral solution 14 HYDROCODONE/ACETAMINOPHEN Take by mouth as Needed. Active (NORCO PO) B INFANTIS/B ANI/B REJI/B Take by mouth daily. Active BIFID (PROBIOTIC 4X PO) diphenhydrAMINE Take 25 mg by mouth every Active (BENADRYL) 25 mg capsule 6 hours as needed. 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 HTN (hypertension) 08/26/2013 Asthma 08/26/2013 Social History Tobacco Use Types Packs/Day Years Used Date Current Every Day Smoker Cigarettes 1 40 Smokeless Tobacco: Never Used Alcohol Use Drinks/Week oz/Week Comments Yes Twice Yearly Last Filed Vital Signs Vital Sign Reading Time Taken Blood Pressure 121/80 09/13/2013 12:54 PM CDT Pulse 105 09/13/2013 12:54 PM CDT Temperature 37.1 C (98.8 F) 08/30/2013 2:00 PM CDT Respiratory Rate - - Height 1.473 m (4' 10") 09/13/2013 12:54 PM CDT Weight 47.083 kg (103 lb 12.8 09/13/2013 12:54 PM CDT oz) Body Mass Index 21.7 09/13/2013 12:54 PM CDT Oxygen Saturation 91% 08/30/2013 2:00 PM CDT Plan of Care Health Maintenance Due Date Last Done Comments Hepatitis C Screening 1956 Physical (Comprehensive) 1963 Exam Pertussis Vaccine 1967 Tetanus Vaccine 1973 Cervical Cancer Screening 1977 Breast Cancer Screening 1996 Colorectal Cancer 2006 Screening Shingles Vaccine 2016 Influenza Vaccine 10/10/2016 Results from Last 3 Months Not on file
--- OUTSIDE RECORDS SUMMARY | 2016-06-30 16:34 | XMS REPORT | Referral Summary ---
Author Organization Unknown Address Unknown Phone Unavailable Care Team Providers Care Product Coordinator Name Role Phone Nigel Crowley Primary Care Physician [phone] Encounter VC Date(s): 05/29/14 - 05/29/14 [address], [place]fon[place], [address] [place] [id number] Discharge Diagnosis: High blood pressure Discharge Diagnosis: COPD (chronic obstructive pulmonary disease) Discharge Diagnosis: Radiation injury Discharge Diagnosis: Hay fever Discharge Disposition: Home or Self Care Attending Physician: Jeffrey Crowley MD Admitting Physician: Jeffrey Crowley MD Vital Signs Most recent to 1 oldest [Reference Range]: Peripheral Pulse 88 bpm Rate [60-100 bpm] (05/29/14 2:23 PM) Blood Pressure 116/86 mmHg [90-140/60-90 mmHg] (05/29/14 2:23 PM) Problem List Condition Effective Dates Status [...] amoxicillin Active amoxicillin-clavulanate Active celecoxib Active Medications cyclobenzaprine 10 mg oral tablet See Instructions, TAKE ONE TABLET BY MOUTH TWICE DAILY, # 60 tabs, 0 Refill(s), Pharmacy: [id number], TAKE ONE TABLET BY MOUTH TWICE DAILY Special Instructions: TAKE ONE TABLET BY MOUTH TWICE DAILY Start Date: 05/24/14 Stop Date: 02/08/15 Status: Ordered Norvasc 10 mg oral tablet 1 tabs, Oral, Daily, # 90 tabs, 0 Refill(s), Pharmacy: [id number], 1 tabs Oral Daily Start Date: 04/28/14 Status: Ordered oxyCODONE 5 mg oral tablet 1 tabs, Oral, q6hr, as needed for pain, # 60 tabs, 0 Refill(s) Start Date: 05/24/14 Status: Ordered Ventolin HFA 90 mcg/inh inhalation aerosol 2 puffs, Inhalation, QID, as needed for wheezing, 0 Refill(s) Start Date: 07/21/13 Status: Ordered Zoloft 100 mg oral tablet 1 tabs, Oral, Daily, # 30 tabs, 6 Refill(s), Pharmacy: [id number], 1 tabs Oral Daily Start Date: 05/29/14 Status: Ordered ZyrTEC 10 mg oral tablet [...] pt.appt. with 06/06/2013 2Ovarian cyst, endometriosis seeding 17013/1983 Social History Social History Type Response Smoking Status Current every day smoker; Type: Cigarettes; Tobacco use per day: 1 Pack Assessment and Plan Extracted from: Title: Ambulatory Patient Education Author: Jeffrey Crowley MD Date: Allergy Allergies Allergies may happen from anything your body is sensitive to. This may be food, medicines, pollens, chemicals, and nearly anything around you in everyday life that produces allergens. An allergen is anything that causes an allergy producing substance. Heredity is often a factor in causing these problems. This means you may have some of the same allergies as your parents. Food allergies happen in all age groups. Food allergies are some of the most severe and life threatening. Some common food allergies are cow's milk, seafood , eggs, nuts, wheat, and soybeans. SYMPTOMS Swelling around the mouth. An itchy red rash or hives. Vomiting or diarrhea. Difficulty breathing. SEVERE ALLERGIC REACTIONS ARE LIFE-THREATENING. This reaction is called anaphylaxis . It can cause the mouth and throat to swell and cause difficulty with breathing and swallowing. In severe reactions only a trace amount of food (for example, peanut oil in a salad) may cause within seconds. Seasonal allergies occur in all age groups. These are seasonal because they usually occur during the same season every year. They may be a reaction to molds , grass pollens, or tree pollens. Other causes of problems are house dust mite allergens, pet dander, and mold spores. The symptoms often consist of nasal congestion, a runny itchy nose associated with sneezing, and tearing itchy eyes. There is often an associated itching of the mouth and ears. The problems happen when you come in contact with pollens and other allergens. Allergens are the particles in the air that the body reacts to with an allergic reaction. This causes you to release allergic antibodies. Through a chain of events, these eventually cause you to release histamine into the blood stream. Although it is meant to be protective to the body, it is this release that causes your discomfort. This is why you were given anti-histamines to feel better. If you are unable to pinpoint the offending allergen, it may be determined by skin or blood testing. Allergies cannot be cured but can be controlled with medicine. Hay fever is a collection of all or some of the seasonal allergy problems. It may often be treated with simple dfss-mpx-usihazn medicine such as diphenhydramine. Take medicine as directed. Do not drink alcohol or drive while taking this medicine. Check with your caregiver or package insert for child dosages. If these medicines are not effective, there are many new medicines your caregiver can prescribe. Stronger medicine such as nasal spray, eye drops, and corticosteroids may be used if the first things you try do not work well. Other treatments such as immunotherapy or desensitizing injections can be used if all else fails. Follow up with your caregiver if problems continue. These seasonal allergies are usually not life threatening. They are generally more of a nuisance that can often be handled using medicine. HOME CARE INSTRUCTIONS If unsure what causes a reaction, keep a diary of foods eaten and symptoms that follow. Avoid foods that cause reactions. If hives or rash are present: Take medicine as directed. You may use an yikj-ehw-jekltqn antihistamine (diphenhydramine) for hives and itching as needed. Apply cold compresses (cloths) to the skin or take baths in cool water. Avoid hot baths or showers. Heat will make a rash and itching worse. If you are severely allergic: Following a treatment for a severe reaction, hospitalization is often required for closer follow-up. Wear a medic-alert bracelet or necklace stating the allergy. You and your family must learn how to give adrenaline or use an anaphylaxis kit. If you have had a severe reaction, always carry your anaphylaxis kit or EpiPen with you. Use this medicine as directed by your caregiver if a severe reaction is occurring. Failure to do so could have a fatal outcome. SEEK MEDICAL CARE IF: You suspect a food allergy. Symptoms generally happen within 30 minutes of eating a food. Your symptoms have not gone away within 2 days or are getting worse. You develop new symptoms. You want to retest yourself or your child with a food or drink you think causes an allergic reaction. Never do this if an anaphylactic reaction to that food or drink has happened before. Only do this under the care of a caregiver. SEEK IMMEDIATE MEDICAL CARE IF: You have difficulty breathing, are wheezing, or have a tight feeling in your chest or throat. You have a swollen mouth, or you have hives, swelling, or itching all over your body. You have had a severe reaction that has responded to your anaphylaxis kit or an EpiPen. These reactions may return when the medicine has worn off. These reactions should be considered life threatening. MAKE SURE YOU: Understand these instructions. Will watch your condition. Will get help right away if you are not doing well or get worse. Document Released: 04/21/2003 Document Revised: 05/23/2013 Document Reviewed: [facility] Patient Information 2014 [facility]. [facility] Radiation and its Effects on Humans Radiation is a form of energy. The radiation of concern is ionizing radiation. Atoms release radiation as they change from unstable, energized forms to more stable forms. All matter is composed of elements, and elements that are radioactive are generally referred to as radionuclides. Each element can take many different forms (called isotopes). Some of these isotopes are unstable and emit radiation ; these unstable isotopes are known as radioisotopes or radionuclides. Stable isotopes do not undergo radioactive decay and therefore do not emit radiation. TYPES OF RADIATION Alpha particles can travel only a few inches in the air and lose their energy almost as soon as they collide with anything. They are easily shielded by a sheet of paper or the outer layer of a person's skin. Alpha particles are hazardous only when they are inhaled or swallowed. Beta particles can travel in the air for a distance of a few feet. Beta particles can pass through a sheet of paper but can be stopped by a sheet of aluminum foil or glass. Beta particles can damage skin, but are most hazardous when swallowed or inhaled. Gamma rays are waves of pure energy and are similar to X-rays. They travel at the speed of light through air or open spaces. [place], lead, or steel must be used to block gamma rays. Gamma rays can present an extreme external hazard. Neutrons are small particles that have no electrical charge. They can travel long distances in air and are released during nuclear fission. Water or concrete offer the best shielding against neutrons. Like gamma rays, neutrons can present an extreme external hazard. TERMS USED FOR RADIATION MEASUREMENTS Radiation is measured in different ways. Measurements used in the [place] include the following (the internationally used equivalent unit of measurement follows in parenthesis): Rad (radiation absorbed dose) measures the amount of energy actually absorbed by a material, such as human tissue (Xfin=698 rads). Roentgen is a measure of exposure; it describes the amount of radiation energy, in the form of gamma or X-rays, in the air. Rem (Roentgen equivalent man) measures the biological damage of radiation. It takes into account both the amount, or dose, of radiation and the biological effect of the type of radiation in question. A millirem is one one-thousandth of a rem (Zwqtfvh=051 rems). Curie is a unit of radioactivity. One curie refers to the amount of any radionuclide that undergoes 37 billion atomic transformations a second. A nanocurie is one one-billionth of a curie (37 Becquerel=1 nanocurie). WHAT LEVELS OF RADIATION ARE PEOPLE EXPOSED TO IN EVERYDAY LIFE? To put an emergency situation in perspective, it helps to be aware of the radiation levels people encounter in everyday life. Individual exposures vary, but humans are exposed routinely to radiation from both natural sources, such as cosmic rays from the sun and indoor radon, and from manufactured sources, such as televisions and medical X-rays. Even the human body contains natural radioactive elements. Because individual human exposures to radiation are usually small, the millirem (one one-thousandth of a rem) is generally used to express the doses humans receive. The following table shows average radiation doses from several common sources of human exposure. Radiation Source Dose (millirems) Chest X-ray.....................................10 Mammogram.................................30 Cosmic rays...................................31 (annually) Human body..................................39 (annually) Household radon.......................200 (annually) Cross-country airplane flight......5 LEGAL LIMITS FOR RADIATION EXPOSURE Another way to help put a radiological emergency into perspective is to be aware of the radiation exposure limits for people who work with and around radioactive materials servicenow administrator, as shown in the following table: Worker Category Legal Limit 18-year old male..........................5 rem/year woman.....................500 millirem (mrem) during THE EFFECT OF RADIATION ON HUMANS Radiation effects fall into two broad categories: deterministic and stochastic. At the cellular level, high doses of ionizing radiation can result in severe dysfunction, even , of cells. At the organ level, if a sufficient number of cells are so affected, the function of the organ is impaired. Such effects are called "deterministic." Deterministic effects have definite threshold doses , which means, that the effect is not seen until the absorbed dose is greater than a certain level. Once above that threshold level, the severity of the effect increases with dose. Also, deterministic effects are usually manifested soon after exposure. Examples of such effects include radiation skin burning, blood count effects, and cataracts. In contrast, stochastic effects are caused by more subtle radiation-induced cellular changes (usually DNA mutations) that are random in nature and have no threshold dose. The probability of such effects increases with dose, but the severity does not. Cancer is the only observed clinical manifestation of radiation-induced stochastic effects. Not only is the severity independent of dose, but also, there is a substantial delay between the time of exposure and the appearance of the cancer, ranging from several years for leukemia to decades for solid tumors. Cancer can result from some DNA changes in the somatic cells of the body, but radiation can also damage the germ cells (ova and sperm) to produce hereditary effects. These are also classified as stochastic; however, clinical manifestations of such effects have not been observed in humans at a statistically significant level. The nature and extent of damage caused by ionizing radiation depend on a number of factors, including the amount of exposure, the frequency of exposure, and the penetrating power of the radiation to which an individual is exposed. Rapid exposure to very large doses of ionizing radiation is rare but can cause within a few days or months. The sensitivity of the exposed cells also influences the extent of damage. For example, rapidly growing tissues, such as developing embryos, are particularly vulnerable to harm from ionizing radiation. IMPORTANT EMERGENCY RESPONSE TERMS ERAMS (Environmental Radiation Ambient Monitoring System) is the EPA- operated monitoring system used to measure radioactivity and other contaminants in the environment. There are 260 ERAMS sampling stations throughout the [place] In an emergency, the sampling stations can be used to provide information on how far contamination has spread. Plume - The airborne "cloud" of material released to the environment. The plume may contain nuclear materials and may or may not be visible. Protective Action - Any action taken to reduce or avoid a radiation dose to the public. Protective Action Guide (PAG) - A predetermined projected dose level at which specified actions should be taken to protect the public from exposure to radiation. Document Released: 04/18/2003 Document Revised: 04/19/2012 Document Reviewed: [facility] Patient Information 2014 [employer], [facility]. No follow up information was provided.
--- OUTSIDE RECORDS SUMMARY | 2016-06-30 16:34 | XMS REPORT | Continuity of Care Document ---
Author Author [facility] Organization [facility] Address Unknown Phone Unavailable Support Name Relationship Address Phone JACOB TOVAR MD Caregiver [address] [place] [address] [place] [address] Unavailable SULLY GOVEA MD Caregiver [address] [place] [address] [place] [address] Unavailable DEBRA MENA Next Of Kin [id number] [address] Insurance Providers Guarantor Gayathri Vee Address [address] [place] [id number] Email [email or web address] Policy Number [id number] Subscriber's Name Debra Vee Relationship 01 Spouse Group Number [id number] Advance Directives Directive Response Recorded Date/Time Ordered Resuscitation Status Full Code, unverified 07/26/15 4:18pm Resuscitation Documents on File No 07/30/15 8:09am DPOA for Healthcare Only No 07/30/15 8:09am Problems No problem information available. Medications Current Home Medications Medication Dose Units Route Directions Days Qty Instructions Start Date Albuterol Sulfate (Proair Hfa 90 Mcg/Actuation) 8.5 Gm Hfa.aer.ad 1 Puff Inhalation Four Times Daily 9 07/26/15 Amlodipine Besylate (Norvasc) 10 Mg Tablet 10 Mg Oral Daily 05/27 Cetirizine Hcl (Zyrtec) 10 Mg Capsule 10 Mg Oral Daily 05/27/13 Cyclobenzaprine Hcl (Flexeril) 10 Mg Tablet 10 Mg Oral As Needed 05/27/13 Fluticasone/Salmeterol (Advair 250-50 Diskus) 1 Disk W/Dev Inhaler 1 Puff Oral Inhalation Resp.tx Twice A Day for Shortness Of Air/Wheezing Melatonin 3 Mg Tablet 1 Tab Oral Bedtime 30 Tablet 07/26/15 Oxycodone Hcl/Acetaminophen (Oxycodone-Acetaminophen 5-325) 5-325 Tablet 1 Tab Oral Every 6 Hours 07/26/15 Sertraline Hcl (Zoloft) 100 Mg Tablet 100 Mg Oral Daily 05/27/13 Past Home Medications Medication Directions Ordered Status Salmeterol Xinafoate/Fluticasone (Advair 500-50 Diskus) 1 Each Disk.w.dev, 1 Amp Inhalation Twice A Day 05/27/13 Discontinued Social History Social History Problem Response Recorded Date/Time Onset Date Status Chewing Tobacco Status No 05/27/2013 1:53pm Not Applicable Not Applicable Hx Substance Use No 07/27/2015 11:20am Not Applicable Not Applicable Hx Alcohol Use N RARE 07/30/2015 8:27am Not Applicable Not Applicable Has the pt used tobacco in the last 12 months Yes 07/27/2015 11:20am Not Applicable Not Applicable Query Response Start Date Stop Date Smoking Status Current every day smoker Hospital Discharge Instructions No hospital discharge instructions. Plan of Care Discharge Date 07/30/15 12:10pm Prescriptions See Medication Section Functional Status Query Response Date Recorded Ability to complete ADL's impeded by No change July 30, 2015 8:09am Allergies, Adverse Reactions, Alerts Allergen Type Severity Reaction Status Last Updated Clavulanate Allergy Severe HIVES Active 05/27/13 Amoxicillin Allergy Severe HIVES Active 05/27/13 Celecoxib Adverse Reaction Unknown Active 05/27/13 Immunizations Query Response on File Recorded Date/Time Hx Influenza Vaccination Y fall 201407/27/15 11:20am Hx Pneumococcal Vaccination Y 201107/27/15 11:20am Hx Influenza Vaccination Y fall 201407/27/15 11:20am Vital Signs Acute Vital Signs Vital Response Date/Time Temperature (Fahrenheit) 96.9 deg F (96.8 - 99.1) 07/30/2015 10:56am Temperature (Calculated Celsius) 36.53341 degrees C (36.0 - 37.3) 07/30/2015 10:56am Temperature Source Temporal 07/30/2015 10:56am Pulse Rate (adult) 80 bpm (60 - 100) 07/30/2015 11:55am Respiratory Rate 20 breaths/min (10 - 20) 07/30/2015 11:55am O2 Sat by Pulse Oximetry 95 % (90 - 100) 07/30/2015 11:55am Oxygen Delivery Method Room Air 07/30/2015 11:55am Blood Pressure 115/68 mm Hg 07/30/2015 11:55am Blood Pressure Source Automatic Cuff 07/30/2015 11:55am Height (Feet) 4 feet 07/30/2015 7:59am Height (Inches) 8.00 inches 07/30/2015 7:59am Weight (Kilograms) 40.300 kg 07/30/2015 7:59am Body Mass Index (BMI) 19.9 07/30/2015 7:59am Results Laboratory Results Test Name Result Units Flags Reference Collection Date/Time Result Date/ Time Comments White Blood Count 8.2 T/MM3 4.5-11.0 07/30/2015 7:42am 07/30/2015 8: 08am Red Blood Count 4.64 M/MM3 4.00-5.20 07/30/2015 7:42am 07/30/2015 8: 08am Hemoglobin 15.0 GM/DL 12-16 07/30/2015 7:42am 07/30/2015 8:08am Hematocrit 45.6 % 36-46 07/30/2015 7:42am 07/30/2015 8:08am Mean Corpuscular Volume 98.3 UM3 80-100 07/30/2015 7:42am 07/30/2015 8: 08am Mean Corpuscular Hemoglobin 32.3 UUG 26-34 07/30/2015 7:42am 2015 8:08am Mean Corpuscular Hemoglobin Concent 32.9 GM/DL 31-37 07/30/2015 7:42am 07/30/2015 8:08am RDW Standard Deviation 46.7 FL 36.9-50.2 07/30/2015 7:42am 07/30/2015 8 :08am Platelet Count 247 T/MM3 130-400 07/30/2015 7:42am 07/30/2015 8:08am Mean Platelet Volume 10.0 UM3 9.4-12.4 07/30/2015 7:42am 07/30/2015 8: 08am Neutrophils % (Manual) 72.0 % H 33-66 07/30/2015 7:42am 07/30/2015 8: 33am Band Neutrophils % 3.0 % 0-6 07/30/2015 7:42am 07/30/2015 8:33am Lymphocytes % (Manual) 20.0 % L 23-45 07/30/2015 7:42am 07/30/2015 8: 33am Eosinophils % (Manual) 5.0 % H 0-4 07/30/2015 7:42am 07/30/2015 8:33am Band Neutrophils # 0.2 T/MM3 07/30/2015 7:42am 07/30/2015 8:33am Absolute Neutrophils (Manual) 5.9 T/MM3 1.8-7.7 07/30/2015 7:42am 07/29 8:33am Lymphocytes # (Manual) 1.6 T/MM3 1-4.8 07/30/2015 7:42am 07/30/2015 8: 33am Eosinophils # (Manual) 0.4 T/MM3 0-0.5 07/30/2015 7:42am 07/30/2015 8: 33am Red Cell Morphology Comment NORMAL 07/30/2015 7:42am 07/30/2015 8: 33am Icterus Index < 2 0-7 07/30/2015 7:42am 07/30/2015 7:59am Chemistry Specimen Hemolysis < 15 0-25 07/30/2015 7:42am 07/30/2015 7 :59am 0-25: Specimen Exhibited No Hemolysis. Turbidity < 20 0-20 07/30/2015 7:42am 07/30/2015 7:59am Sodium Level 143 MEQ/L 134-144 07/30/2015 7:42am 07/30/2015 7:59am Potassium Level 3.8 MEQ/L 3.6-5 07/30/2015 7:42am 07/30/2015 7:59am Chloride Level 108 MEQ/L H 98-107 07/30/2015 7:42am 07/30/2015 7:59am Carbon Dioxide Level 26 MEQ/L 22-30 07/30/2015 7:42am 07/30/2015 7: 59am Anion Gap 9 MEQ/L 5-15 07/30/2015 7:42am 07/30/2015 7:59am Blood Urea Nitrogen 17.0 MG/DL 7-17 07/30/2015 7:42am 07/30/2015 7: 59am Creatinine 0.8 MG/DL 0.7-1.2 07/30/2015 7:42am 07/30/2015 7:59am BUN/Creatinine Ratio 21 RATIO 6-26 07/30/2015 7:42am 07/30/2015 7:59am Glomerular Filtration Rate Calc 73 07/30/2015 7:42am 07/30/2015 7: 59am Glucose Level 103 MG/DL 65-110 07/30/2015 7:42am 07/30/2015 7:59am Calculated Osmolality 277 MOSM/KG 261-280 07/30/2015 7:42am 07/30/2015 7:59am Calcium Level 9.6 MG/DL 8.4-10.2 07/30/2015 7:42am 07/30/2015 7:59am Procedures Procedure Status Date Provider(s) CINE/VID X-RAY THROAT/ESOPH Completed 05/08/15 MOTION FLUOROSCOPY/SWALLOW Completed 05/08/15 ST SWALLOW CURRENT STATUS Completed 05/08/15 ST SWALLOW GOAL STATUS Completed 05/08/15 ST SWALLOW DISCHARGE STATUS Completed 05/08/15 Encounters Encounter Location Arrival/Admit Date Discharge/Depart Date Attending Provider Departed [facility] 07/30/15 7:26am 07/30/15 12 :10pm SULLY GOVEA MD Discharged Recurring [facility] 06/04/15 1:30pm 07/22/15 11:59pm JACOB TOVAR MD Registered Clinic [facility] 05/08/15 10:16am ADE ZARAGOZA
--- OUTSIDE RECORDS SUMMARY | 2016-06-30 16:35 | XMS REPORT | Referral Summary ---
Author Author [facility] Organization [facility] Address Unknown Phone Unavailable Care Team Providers Care Lion Tamer Name Role Phone Nigel Crowley Primary Care Physician [phone] Encounter VC Date(s): 08/14/15 - 08/14/15 [facility] [address] [place] [address] [place] [id number] Discharge Diagnosis: Bladder pain Discharge Diagnosis: Chronic trigonitis Discharge Diagnosis: Urethral stenosis Discharge Disposition: 01-Home or Self Care Attending Physician: Horacio Higgins JR, MD Admitting Physician: Horacio Higgins JR, MD Referring Physician: Jeffrey Crowley MD Vital Signs Most recent to 1 oldest [Reference Range]: Peripheral Pulse 77 bpm Rate [60-100 bpm] (08/14/15 10:44 AM) Blood Pressure 110/78 mmHg [90-140/60-90 mmHg] (08/14/15 10:44 AM) Problem List Condition Effective Dates Status [...] BID, # 28 Each, 0 Refill(s), Pharmacy: [facility] [id number] Start Date: 04/17/15 Status: Ordered amLODIPine 10 mg oral tablet 10 mg 1 tabs, Oral, Daily, MUST SCHEDULE A FOLLOW UP APPOINTMENT FOR FURTHER REFILLS, # 90 tabs, 0 Refill(s), Pharmacy: [facility] [id number], 1 tabs Oral Daily,Instr:MUST SCHEDULE A FOLLOW UP APPOINTMENT FOR FURTHER REFILLS Start Date: 05/21/15 Status: Ordered cyclobenzaprine 10 mg oral tablet See Instructions, TAKE ONE TABLET BY MOUTH TWICE DAILY, # 60 tabs, 1 Refill(s), Pharmacy: [facility] [id number], TAKE ONE TABLET BY MOUTH TWICE DAILY Start Date: 03/21/15 Status: Ordered Melatonin Bedtime (once a day), as needed for insomnia, 0 Refill(s) Start Date: 02/07/15 Status: Ordered oxyCODONE 5 mg oral tablet 5 mg 1 tabs, Oral, q6hr, as needed for pain, # 60 tabs, 0 Refill(s) Start Date: 07/19/15 Status: Ordered ProAir HFA 90 mcg/inh inhalation aerosol 2 puffs, Inhalation, QID, as needed for wheezing, # 2 Each, 0 Refill(s), Pharmacy: [facility] [id number] Start Date: 04/04/15 Status: Ordered sertraline 100 mg oral tablet See Instructions, TAKE ONE TABLET BY MOUTH ONCE DAILY, # 30 tabs, eRx: [facility] [id number], TAKE ONE TABLET BY MOUTH ONCE DAILY Start Date: 08/02/15 Status: Ordered ZyrTEC 10 mg oral tablet 1 tabs, Oral, Daily, # 30 tabs, 0 Refill(s) Start Date: 09/28/13 Status: Ordered Results No data available for this section Immunizations Vaccine Date Refusal Reason tetanus/diphth/pertuss (Tdap) adult/adol 10/22/10 pneumococcal 23-polyvalent vaccine 10/22/10 tetanus-diphth toxoids (Td) adult/adol 05/15/98 Procedures Procedure Date Related Diagnosis Body Site RT.Cervical lymph node biopsy1 4/28/14 Left breast lumpectomy 11/1996 BSO - Bilateral salpingo-oophorectomy2 04/1996 Biopsy of breast Hysterectomy3 lumpectomy 1Informed pt. set up to see ENT/ pt.appt. with 06/06/2013 2Ovarian cyst, endometriosis seeding 51363/1983 Social History Social History Type Response Smoking Status Current every day smoker; Type: Cigarettes; Tobacco use per day: 1 Pack Assessment and Plan Extracted from: Title: Ambulatory Patient Education Author: Horacio Higgins JR, MD Date : 08/14/15 Follow Up With: Where: When: Jeffrey Crowley [address] [place] [address] Drive; [place], [place] [id number] Business (1) Within 3 to 5 days Comments: Follow Up With: Where: When: Horacio Higgins [address]; [place] [address] Business (1) In 2 weeks 08/28/2015 Comments: Extracted from: Title: Office Visit Note Author: Horacio Higgins JR, MD Date: 08/14/15 Assessment/Plan 1.Bladder pain Patient still has bladder pain especially after she voids. She said she still vnwobqzww-xsr-alopfsw pain medication for that. I like to see her again in 2 weeks. Patient instructed to drink plenty of liquids and reduce intake of caffeine highly acidic and highly spiced food. Continue one sitz bathsbut 2030 minutes before she goes to bed Ordered: Office Visit Level 3 Est 15501 2.Chronic trigonitis The frequency and urgency of urination is now gone. Ordered: Office Visit Level 3 Est 63042 3.Urethral stenosis Patient is now voiding well doesn't have to strain any more to urinate. Ordered: Office Visit Level 3 Est 99982
--- OUTSIDE RECORDS SUMMARY | 2016-06-30 16:35 | XMS REPORT | Referral Summary ---
Author Author [facility] Care Organization [facility] Address Unknown Phone Unavailable Care Team Providers Care Case Finishing Machine Adjuster Name Role Phone Nigel Crowley Primary Care Physician [phone] Encounter VC Date(s): 09/03/15 - 09/03/15 [facility], [address] [place] [id number] Discharge Diagnosis: COPD exacerbation Discharge Diagnosis: Tobacco use Discharge Disposition: 01-Home or Self Care Attending Physician: Dustin Rodríguez PA-C Admitting Physician: Dustin Rodríguez PA-C Vital Signs Most recent to 1 oldest [Reference Range]: Temperature Tympanic 36.7 degC [36.6-38.1 degC] (09/03/15 1:45 PM) Peripheral Pulse 89 bpm Rate [60-100 bpm] (09/03/15 1:45 PM) SpO2 91 % (09/03/15 1:45 PM) Problem List Condition Effective Dates Status [...] BID, # 28 Each, 0 Refill(s), Pharmacy: [facility] [id number] Start Date: 04/17/15 Status: Ordered amLODIPine 10 mg oral tablet See Instructions, TAKE ONE TABLET BY MOUTH ONCE DAILY, # 90 tabs, 1 Refill(s), eRx: [facility] [place] [id number], TAKE ONE TABLET BY MOUTH ONCE DAILY Start Date: 08/17/15 Status: Ordered cyclobenzaprine 10 mg oral tablet See Instructions, TAKE ONE TABLET BY MOUTH TWICE DAILY, # 60 tabs, 1 Refill(s), Pharmacy: [facility] [id number], TAKE ONE TABLET BY MOUTH TWICE DAILY Start Date: 03/21/15 Status: Ordered doxycycline hyclate 100 mg oral tablet 100 mg 1 tabs, Oral, BID, X 7 days, # 14 tabs, 0 Refill(s), Pharmacy: [facility] [address], 1 tabs Oral BID,x7 days Start Date: 09/03/15 Stop Date: 09/10/15 Status: Ordered Melatonin Bedtime (once a day), as needed for insomnia, 0 Refill(s) Start Date: 02/07/15 Status: Ordered oxyCODONE 5 mg oral tablet 5 mg 1 tabs, Oral, q6hr, as needed for pain, # 60 tabs, 0 Refill(s) Start Date: 07/19/15 Status: Ordered predniSONE 20 mg oral tablet See Instructions, 3 tabs at once Oral Daily for three days 2 tabs at once Oral Daily three days 1 tab Oral Daily for three days, # 18 tabs, 0 Refill(s), Pharmacy: [facility] [id number], 3 tabs at once Oral Daily for three days; 2 tabs at once Oral... Start Date: 09/03/15 Stop Date: 09/12/15 Status: Ordered ProAir HFA 90 mcg/inh inhalation aerosol 2 puffs, Inhalation, QID, as needed for wheezing, # 2 Each, 0 Refill(s), Pharmacy: [facility] [id number] Start Date: 04/04/15 Status: Ordered sertraline 100 mg oral tablet See Instructions, TAKE ONE TABLET BY MOUTH ONCE DAILY, # 30 tabs, eRx: [id number], TAKE ONE TABLET BY MOUTH ONCE DAILY Start Date: 08/31/15 Status: Ordered ZyrTEC 10 mg oral tablet [...] pt.appt. with 06/06/2013 2Ovarian cyst, endometriosis seeding 35634/1983 Social History Social History Type Response Smoking Status Current every day smoker; Type: Cigarettes; Tobacco use per day: 1 Pack Assessment and Plan Extracted from: Title: diff breathing Author: Dustin Rodríguez PA-C Date: 09/03/15 Assessment/Plan COPD exacerbation I started the patient on prednisone 60 mg with a tapering dose, I asked that she picked this up and start it now. Also prescribed doxycycline7 days. Continue with albuterol inhaler as needed every2- 4 hours, 2 puffs;if patient is requiringalbuterol 2 puffs every 2 hours repeatedly then follow-up for additional assessment. Diagnosis and treatment discussed. Patient advised to follow up with PCP in 2-3 days. Patient stable upon discharge, alert and orientated with no apparent distress, and indicated understanding of discharge instructions. If symptoms worsen at any time, patient will go to the nearest ER for further evaluation. Emphysema, unspecified As above Tobacco use Smoking cessation discussed. Orders: doxycycline, 100 mg 1 tabs, Oral, BID, X 7 days, # 14 tabs, 0 Refill(s ), Pharmacy: [id number], 1 tabs Oral BID,x7 days predniSONE, See Instructions, 3 tabs at once Oral Daily for three days 2 tabs at once Oral Daily three days 1 tab Oral Daily for three days, # 18 tabs, 0 Refill(s), Pharmacy: [id number], 3 tabs at once Oral Daily for three days; 2 tabs at once Oral...
--- OUTSIDE RECORDS SUMMARY | 2016-06-30 16:55 | XMS REPORT | Continuity of Care Document ---
Author Author [facility] Organization [facility] Address Unknown Phone Unavailable Care Team Providers Care Ethics Instructor Name Role Phone Jeffrey Crowley Primary Care Physician [phone] Source Comments Some departments are not documenting in the electronic medical record. If you do not see the information that you expected, contact Release of Information in the Health Information Management department at [phone] for further assistance in locating additional records.[facility] Active Allergies and Adverse Reactions Allergen [...]
--- NOTE | 2016-06-30 17:12 | ERPDOC ---
Departure Disposition Decision Date: June 30, 2016 Disposition Decision Time: 19:08 Disposition: 01 DISCHARGED HOME, SELF-CARE Impression Impression Impression: Primary Impression: Pyelonephritis Additional Impression: Dehydration Severity: Moderate Condition: Improved Seen By: Physician only Referrals: JACOB TOVAR MD (Family) Patient Instructions: Kidney Infection (ED) Problems/Meds/Labs Reviewed?: Yes Medications reviewed and manag: Yes Additional Instructions: Bactrim DS, one tablet twice daily. Keflex 500 mg, 2 tablets twice daily. Follow-up with your primary care provider. If symptoms are worsening, return for reevaluation. Follow up care ordered?: Yes Mental Status: Alert, Oriented Scripts Cephalexin (Keflex) 500 Mg Capsule 2 CAP PO BID, #40 CAP Prov: BERTRAND RODRIGUEZ MD 06/30/16 Sulfamethoxazole/Trimethoprim (Bactrim Ds Tablet) 1 Each Tablet 1 TAB PO BID, #20 TAB Take 1 tablet, by mouth, 2 times a day. Prov: BERTRAND RODRIGUEZ MD 06/30/16 HPI - Abdominal Pain General Chief Complaint: Flank Pain Stated Complaint: SEVERE BACK PAIN Time Seen by Provider: 16:29 HPI - Abdominal Pain Initial Comments 61-year-old female with right-sided abdominal pain which started today. Pain radiates from right side flank down into the groin. She has not had kidney stones previously. She notes that her urine is quite red today. She did have a hysterectomy and bilateral oophorectomy. No rectal bleeding. No fever or chills. 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 She has had surgical resection and is currently considered in remission. This was diagnosed 3 years ago. She takes one Percocet 10 nightly to help with pain while she sleeps. She smokes approximately one pack per day drinks no alcohol, uses no other drugs. No other concerns at this time Allergies: Coded Allergies: amoxicillin (Unverified Allergy, Severe, HIVES, 06/30/16) clavulanic acid (Unverified Allergy, Severe, HIVES, 06/30/16) celecoxib (Unverified Adverse Reaction, Unknown, 06/30/16) PT STATES "I WAS ON THAT WHEN I HAD MY STROKE" Past History Patient Medical History Problem List Updates: History of oral cancer, hypertension Patient Surgical History Surgical resection of oral cancer, hysterectomy, bilateral nephrectomy Vaccines Hx Influenza Vaccination: Yes (FALL 2014) Hx Pneumococcal Vaccination: Yes (2011) Social History Does patient use chewing tobac: No # of Packs/Tins per Day: 1 # of Years: 40 Review of Systems ENMT Mouth/Throat: see HPI GI Upper Abdomen: see HPI General: see HPI Female: see HPI : see HPI Musculoskeletal Comments Significant weight loss and muscle wasting since cancer diagnosis. Physical Exam General General Nourishment: adult, cachectic Distress Description Pain from right side abdomen. Vitals and Pain First Documented Vital Signs Date Time Temp Pulse Resp B/P Pulse Ox O2 Delivery O2 Flow Rate FiO2 06/30/16 16:33 98.5 108 22 125/75 96 Room Air Weight: Kilograms: 66.600 Height (feet): 4 Height (inches): 10.00 Triage Pain Scale: Normal Exams: Chest/Resp: Clear all linares, with good airflow, and symmetry bilaterally CV: Regular rate and rhythm, without murmur or gallop, Pulses 2+ all extremities, capillary refill, <2 seconds all ext., no pedal edema noted Abdomen (brief) Comments Abdomen tender right upper quadrant and right lower quadrant. Is actually quite significant tenderness to gentle palpation. Differential Diagnoses Considering: Other (UTI and abdominal abscess, ileus, bowel obstruction, kidney stone) Progress Results/Orders Orders Procedure Category Date Status Time Iv Lock (Ed Only) EDM 06/30/16 Transmitted 17:14 Cbc W/Auto LAB 06/30/16 Complete Diff-Reflex Manual 17:14 Cmp - Comprehensive LAB 06/30/16 Complete Metabolic 17:14 Lipase LAB 06/30/16 Complete 17:14 Ct Renal W/O Contrast CT 06/30/16 Logged 17:14 Normal Saline (Normal PHA 06/30/16 In Process Saline Iv) 17:14 Hydromorphone PHA 06/30/16 Complete (Dilaudid) 17:15 Ondansetron Inj PHA 06/30/16 Complete (Zofran) 17:15 Ketorolac (Toradol) PHA 06/30/16 Complete 17:15 UA, LAB 06/30/16 Complete Dip&Micro(Complete) & 16:51 Urine Culture KYLE 06/30/16 In Process 17:38 Lab Results Laboratory Tests Test 06/30/16 16:51 06/30/16 17:30 Urine Collection Type Voided-not cc-midstr Urine Color Yellow Urine Turbidity Cloudy Urine pH 5.5 Urine Specific [place] 1.015 Urine Protein 2+ Urine Glucose (UA) Negative Urine Ketones Negative Urine Blood 3+ Urine Nitrite Negative Urine Bilirubin 1+ Urine Urobilinogen 0.2EU/DL Urine Leukocyte Esterase 3+ Urine RBC None seen/HPF Urine WBC Tntc/HPF Urine WBC Clumps Moderate Urine Squamous Epithelial Cells None seen Urine Amorphous Urates Moderate Urine Bacteria 2+ Urine Culture Indicated Cult reflexed &setup White Blood Count 16.2T/MM3 Red Blood Count 4.39M/MM3 Hemoglobin 14.0GM/DL Hematocrit 42.0% Mean Corpuscular Volume 95.7UM3 Mean Corpuscular Hemoglobin 31.9UUG Mean Corpuscular Hemoglobin Concent 33.3GM/DL RDW Standard Deviation 51.6FL Platelet Count 199T/MM3 Mean Platelet Volume 9.9UM3 Immature Granulocyte % (Auto) % Neutrophils (%) (Auto) % Lymphocytes (%) (Auto) % Monocytes (%) (Auto) % Eosinophils (%) (Auto) % Basophils (%) (Auto) % Absolute Immature Granulocyte (auto T/MM3 Absolute Neutrophils (auto) T/MM3 Absolute Lymphocytes (auto) T/MM3 Absolute Monocytes (auto) T/MM3 Absolute Eosinophils (auto) T/MM3 Absolute Basophils (auto) T/MM3 Neutrophils % (Manual) 82.0% Band Neutrophils % 6.0% Lymphocytes % (Manual) 3.0% Monocytes % (Manual) 8.0% Eosinophils % (Manual) 1.0% Absolute Neutrophils (Manual) 13.3T/MM3 Band Neutrophils # 1.0T/MM3 Lymphocytes # (Manual) 0.5T/MM3 Monocytes # (Manual) 1.3T/MM3 Eosinophils # (Manual) 0.2T/MM3 Anisocytosis 1+ Red Cell Morphology Comment Abnormal Turbidity < 20 Sodium Level 142MEQ/L Potassium Level 3.3MEQ/L Chloride Level 101MEQ/L Carbon Dioxide Level 25MEQ/L Anion Gap 16MEQ/L Blood Urea Nitrogen 18.0MG/DL Creatinine 0.8MG/DL Glomerular Filtration Rate Calc 73 BUN/Creatinine Ratio 23RATIO Glucose Level 108MG/DL Calculated Osmolality 276MOSM/KG Calcium Level 9.3MG/DL Total Bilirubin 0.80MG/DL Icterus Index < 2 Aspartate Amino Transf (AST/SGOT) 41U/L Alanine Aminotransferase (ALT/SGPT) 43U/L Alkaline Phosphatase 94U/L Total Protein 7.5G/DL Albumin 4.5G/DL Globulin 3.0G/DL Albumin/Globulin Ratio 1.5RATIO Lipase 43U/L Chemistry Specimen Hemolysis < 15 Medications Current ED Medications Sodium Chloride (Normal Saline IV) 1,000 ml @ 500 mls/hr Q2H ONCE IV Last administered on 06/30/16 18:00; Start 06/30/16 at 17:14; Stop 06/30/16 at 19:13 Hydromorphone HCl (Dilaudid) 1 mg O ONCE IV Last administered on 06/30/16 18: 08; Start 06/30/16 at 17:15; Stop 06/30/16 at 17:16; Status DC Ondansetron HCl (Zofran) 4 mg O ONCE IV Last administered on 06/30/16 18:01; Start 06/30/16 at 17:15; Stop 06/30/16 at 17:16; Status DC Ketorolac Tromethamine (Toradol) 30 mg O ONCE IV Last administered on 18:05; Start 06/30/16 at 17:15; Stop 06/30/16 at 17:16; Status DC Progress Progress White count returns elevated at 16.8, and urine has blood and white cells. CT scan abdomen and pelvis shows no stones but does show perinephric stranding on right side. This consistent with pyelonephritis. 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 She would like to go home tonight. She is feeling significantly better after 1 L of normal saline IV. I am going to send her home on Bactrim and Keflex for the pyelonephritis. She'll return if her symptoms worsen or she is not responding to the antibiotics. Recommend she see her primary care provider tomorrow. Discussed smoking cessation. BERTRAND RODRIGUEZ MD June 30, 2016 17:12
[2016-06-30] MEDS ORDERED: FLUT1BLS INH (17:17)
[2016-06-30] MEDS ORDERED: OXYC5TAB84 PO (17:17)
[2016-06-30 17:25] LABS: BLOOD, URINE 3+ (NEGATIVE); COLOR,URINE YELLOW (YELLOW); LEUKOCYTE ESTERASE ,URINE 3+ (NEGATIVE); NITRITE,URINE NEGATIVE (NEGATIVE); UROBILINOGEN,URINE 0.2 EU/DL (NORMAL)
[2016-06-30 17:35] LABS: WBC CLUMPS,URINE MODERATE; WBC,URINE TNTC /HPF (0-5)
[2016-06-30 17:36] LABS: MEAN CORPUSCULAR HGB 31.9 UUG (26-34); MEAN CORPUSCULAR HGB CONC(MCHC 33.3 GM/DL (31-37); MEAN CORPUSCULAR VOLUME 95.7 UM3 (80-100); MEAN PLATELET VOLUME 9.9 UM3 (9.4-12.4); RED BLOOD COUNT 4.39 M/MM3 (4.00-5.20); WBC - WHITE BLOOD COUNT 16.2 T/MM3 (4.5-11.0)
[2016-06-30 17:37] LABS: BACTERIA,URINE 2+ (NEGATIVE); RBC,URINE NONE SEEN /HPF (0-3); SQUAMOUS EPITHELIAL CELL,UR NONE SEEN
--- NOTE | 2016-06-30 17:46 | NUR ---
PT IN CT
[2016-06-30 17:48] LABS: ALBUMIN 4.5 G/DL (3.5-5.0); ALBUMIN/GLOBULIN RATIO 1.5 RATIO (1.1-2.2); ALKALINE PHOSPHATASE 94 U/L (38-126); ALT (SGPT) 43 U/L (9-52); ANION GAP 16 MEQ/L (5-15); AST (SGOT) 41 U/L (14-36); BUN/CREATININE RATIO 23 RATIO (6-26); CALCIUM 9.3 MG/DL (8.4-10.2); CHLORIDE 101 MEQ/L (98-107); CO2 - CARBON DIOXIDE 25 MEQ/L (22-30); CREATININE 0.8 MG/DL (0.7-1.2); GLOMERULAR FILTRATION RATE 73; GLUCOSE 108 MG/DL (65-110); LIPASE 43 U/L (23-300); POTASSIUM 3.3 MEQ/L (3.6-5); SODIUM 142 MEQ/L (134-144); TOTAL PROTEIN 7.5 G/DL (6.3-8.2)
[2016-06-30] MEDS: NORMAL SALINE 1,000 ML IV ONE (18:00)
[2016-06-30] MEDS: ONDANSETRON 4mg/2ml INJECTION IV ONE (18:01)
[2016-06-30 18:04] LABS: EOSINOPHILS # (MANUAL) 0.2 T/MM3 (0-0.5); LYMPHOCYTES # (MANUAL) 0.5 T/MM3 (1-4.8); MONOCYTES # (MANUAL) 1.3 T/MM3 (0-0.8); NEUTROPHILS #(MANUAL)-ABSOLUTE 13.3 T/MM3 (1.8-7.7); TOTAL CELLS COUNTED 100 %
[2016-06-30 18:05] LABS: ANISOCYTOSIS 1+
[2016-06-30] MEDS: KETOROLAC 30mg/ml INJECTION IV ONE (18:05)
[2016-06-30 18:08] VITALS: RESP 16
[2016-06-30] MEDS: HYDROMORPHONE 2mg/ml INJECTION IV ONE (18:08)
[2016-06-30 18:15] VITALS: BP 102/60
[2016-06-30 19:00] VITALS: PULSE 102; O2SAT 97
[2016-06-30] MEDS ORDERED: CEPH-583 PO (19:09)
[2016-06-30] MEDS ORDERED: SULF1TAB42 PO (19:09)
[2016-06-30] MEDS: CEPHALEXIN 500 MG CAPSULE PO ONE (19:20)
[2016-06-30] MEDS: SULFAMETHOXAZOLE/TMP 800mg/160mg TABLET PO ONE (19:20)
[2016-06-30] MEDS: ALBUTEROL ORAL INH ONE (19:39)
[2016-06-30] MEDS: IPRATROPIUM ORAL INH ONE (19:39)
--- NOTE | 2016-06-30 19:45 | NUR ---
DEPART PT IS GIVEN DISMISSAL INSTRUCTIONS WITH VERBAL UNDERSTANDNG. PT IS GIVEN A SCRIPT. PT LEAVES AMBULATORY WITH FAMILY TO ED REGISTRATION DESK
--- NOTE | 2016-07-01 08:26 | DI ---
Indication: ITS.REASON: right flank pain, hematuria PROCEDURE: CT RENAL W/O CONTRAST: Encounter: Initial Comparison: None Technique: Axial CT images were performed through the abdomen and pelvis without intravenous contrast. Coronal and sagittal two-dimensional reformats. Automated Exposure Control and Iterative Reconstruction dose reducing techniques were utilized. Findings: Severe emphysema in the lung bases. Noncontrast images show no evidence of contour deforming liver mass. The gallbladder, spleen, pancreas and adrenal glands are stable. Left kidney appears normal. Right kidney shows some perinephric stranding and mild hydronephrosis. Ureters cannot be well evaluated due to lack of intra-abdominal fat. No obvious ureteral stone. Small amount of free pelvic fluid. No evidence of a bowel obstruction. Bladder is grossly normal. Impression: Inflammatory changes surrounding the right kidney could represent pyelonephritis and/or recently passed stone. Recommend clinical and laboratory correlation. There is a preliminary report by [employer]. .
== END 2016-06-30 19:45 | disposition home or self-care (01) ==
LOC: ED 16:29
DX: N12 Tubulo-interstitial nephritis, not specified as acute or chronic (principal); E86.0 Dehydration
CPT/HCPCS: 74176; 80053; 81001; 83690; 85025; 87086; 94664; 96374; 96375; 99284; J1170; J1885; J2405; J7030; 87088; 87186

== ENCOUNTER 2016-08-01 16:03 | Inpatient (IN) ==
[2016-08-01] MEDS ORDERED: IPRATROPIUM/ALBUTEROL 2.5mg-0.5mg/3ml NEB IH ONE (17:20)
[2016-08-01] MEDS ORDERED: SALINE FLUSH 10ml SYRINGE IVF PRN (17:20)
[2016-08-01] MEDS ORDERED: IPRATROPIUM/ALBUTEROL 2.5mg-0.5mg/3ml NEB AEROSOL ONE (18:20)
--- NOTE | 2016-08-01 18:24 | Emergency Department Report ---
SOB HPI - General Chief Complaint: Shortness of Breath/Dyspnea Stated Complaint: soA Time Seen by Provider: 08/01/16 17:19 Source: patient Mode of arrival: ambulatory Limitations: no limitations - History of Present Illness 61yo woman presents to the ER today for shortness of breath. Pt has had sx for the last week; sx have gotten progressively worse over that time, despite continued use of her home medications. Pt has a long h/o COPD (~30% lung function at last PFT). MD Complaint: shortness of breath Onset (ago): day(s) (7) Severity: moderate Consistency/Duration: constant Relieving factors: oxygen, rest, bronchodilators, upright position Exacerbating factors: lying flat, movement, coughing, other (drinking/eating) Known history of: COPD, other (Tongue/salivary gland cancer; s/p resection/ radiation) Associated symptoms: cough, sputum production, sense of impending doom Treatment prior to arrival: bronchodilator - Related Data Home Medications Medication Instructions Recorded Confirmed Amlodipine Besylate 10 mg PO HS #0 tab 05/27/13 08/01/16 Cetirizine HCl [Zyrtec] 10 mg PO DAILY PRN #0 cap 05/27/13 08/01/16 Sertraline HCl 100 mg PO HS #0 tab 05/27/13 08/01/16 Albuterol Sulfate [Proair Hfa] 1 puff INH QID PRN #0 07/26/15 08/01/16 Fluticasone/Vilanterol [Breo 1 puff INH DAILY #0 06/30/16 08/01/16 Ellipta 200-25 Mcg INH] Oxycodone HCl 5 mg PO BID PRN #0 06/30/16 08/01/16 Cyclobenzaprine HCl 10 mg PO BID PRN 08/01/16 08/01/16 [Cyclobenzaprine HCl] Melatonin 20 mg PO HS PRN 08/01/16 08/01/16 Allergies Allergy/AdvReac Type Severity Reaction Status Date / Time amoxicillin Allergy Severe HIVES Unverified 08/01/16 16:12 clavulanic acid Allergy Severe HIVES Unverified 08/01/16 16:12 celecoxib AdvReac Unknown Unverified 08/01/16 16:12 Review of Systems All systems: reviewed and negative except as stated Respiratory: Reports: as per HPI, cough, wheezes Gastrointestinal: Reports: other ('Choking' with food or water. Unintentional) [facility] Patient Stated Medical History Cerebrovascular Accident Yes Dysphagia Yes Hypertension Yes Chronic Obstructive Pulmonary Yes Disease (COPD) Pneumonia Yes Hx Urinary Tract Infection Yes Other Musculoskeletal Yes: FX KNEE Breast CA - 1997; in remission Tongue CA (salivary gland CA) - 2013; in remission - Social History Smoking status: Current every day smoker Physical Exam - Limitations Limitations: no limitations - General General appearance: alert, in no apparent distress, cachectic - Normal Exams: Head:: Normocephalic without trauma Eyes:: Pupils are PERRLA w/ EOMI, No scleral icterus, irritation, or foreign bodies noted ENMT:: No facial trauma, nasal exudates, pharyngeal erythema, or exudates are noted Neck:: Full range of motion, without adenopathy, JVD, bruits or thyromegaly Cardiovascular:: Regular rate and rhythm, without murmur or gallop, Pulses 2+ all extremities, capillary refill, <2 seconds all extremities Abdomen:: Bowel sounds positive, soft, non-tender, non-distended, no hepatosplenomegaly, masses or bruits noted Lymphatic:: No lymphadenopathy ( ), or lymphedema noted Musculoskeletal:: No tenderness, or deformity noted, good range of motion, all extremities Integumentary:: No rashes, hives, or bruising noted, hair and nails, without abnormality Neurological:: Patient is alert, and oriented, cranial nerves, motor/sensory/ cerebellar, exams w/o gross deficits, to observation Psychiatric:: Patient exhibits, appropriate attention, emotion and affect - Chest Chest inspection: Present: normal inspection, symmetric chest wall rise. Absent : tenderness, rash, abscess - Respiratory Respiratory exam: Present: normal lung sounds bilaterally, accessory muscle use , prolonged expiratory phase, other (Globally decreased air movement). Absent: respiratory distress, wheezes, stridor Course Course Narrative: Pt initially evaluated and concern for acute pulm d/o such as PE/PNA. Pt did have some improvement with nebulized albuterol. While drawing repeat labs, pt was given another nebulizer, with continued improvement of her sx. Contacted the hospitalist for further care and evaluation; strong suspicion for aspiration PNA due to h/o choking with swallowing. Hospitalist will admit pt for further treatment and observation. - Consultations Consultation #1: Miller Telemed Time: 19:00 Vital Signs Temperature 98.6 F 08/01/16 16:06 Pulse Rate 95 08/01/16 16:06 Respiratory Rate 24 08/01/16 16:06 Blood Pressure 135/95 H 08/01/16 16:06 Pulse Oximetry 94 08/01/16 16:06 Temperature 97.9 F 08/01/16 19:00 Pulse Rate 84 08/01/16 19:00 Respiratory Rate 36 H 08/01/16 19:00 Blood Pressure 123/74 08/01/16 19:00 Pulse Oximetry 93 08/01/16 19:00 Shortness of Breath/Dyspnea - Differential Diagnosis Likely: acute exacerbation of chronic obstructive airways disease, congestive heart failure, community acquired pneumonia, pulmonary embolism - Medical Records Attestation: I reviewed the patient's medical records. - Lab Data Attestation: I reviewed the patient's lab results. Result diagrams: 08/01/16 17:37 08/01/16 17:37 Lab Results 08/01/16 08/01/16 08/01/16 Range/Units 17:37 17:37 17:37 WBC 12.2 H (4.5-11.0) T/MM3 RBC 4.43 (4.00-5.20) M/MM3 Hgb 14.1 (12-16) GM/DL Hct 42.3 (36-46) % MCV 95.5 (80-100) UM3 MCH 31.8 (26-34) UUG MCHC 33.3 (31-37) GM/DL RDW Std Deviation 50.2 (36.9-50.2) FL Plt Count 290 (130-400) T/MM3 MPV 10.6 (9.4-12.4) UM3 Immature Gran % (Auto) 0.2 (0.0-0.5) % Neut % (Auto) 82.2 H (33-66) % Lymph % (Auto) 7.3 L (23-45) % Union % (Auto) 9.0 (0-9.0) % Eos % (Auto) 1.1 (0-4) % Baso % (Auto) 0.2 (0-2) % Neut # 10.0 H (1.8-7.7) T/MM3 Lymph # 0.9 L (1-4.8) T/MM3 Union # 1.1 H (0-0.8) T/MM3 Eos # 0.1 (0-0.5) T/MM3 Baso # 0.0 (0-0.2) T/MM3 Abs Immat Gran (auto) 0.02 (0.00-0.03) T/MM3 D-Dimer < 150 (0-230) NG/ML Turbidity < 20 (0-20) Sodium 143 (134-144) MEQ/L Potassium 4.2 (3.6-5) MEQ/L Chloride 103 (98-107) MEQ/L Carbon Dioxide 26 (22-30) MEQ/L Anion Gap 14 (5-15) MEQ/L BUN 18.0 H (7-17) MG/DL Creatinine 0.7 (0.7-1.2) MG/DL GFR Calculation 85 BUN/Creatinine Ratio 26 (6-26) RATIO Glucose 100 (65-110) MG/DL Calculated Osmolality 277 (261-280) MOSM/KG Calcium 9.9 (8.4-10.2) MG/DL Magnesium 2.1 (1.6-2.3) MG/DL Total Bilirubin 0.40 (0.20-1.30) MG/DL Icterus Index < 2 (0-7) AST 27 (14-36) U/L ALT 36 (9-52) U/L Alkaline Phosphatase 95 (38-126) U/L Troponin I < 0.012 (0-0.12) ng/ml B-Natriuretic Peptide 130 (0-175) pg/mL Total Protein 7.3 (6.3-8.2) G/DL Albumin 4.4 (3.5-5.0) G/DL Globulin 2.9 (2.4-3.6) G/DL Albumin/Globulin Ratio 1.5 (1.1-2.2) RATIO Specimen Hemolysis 40 H (0-25) - Radiology Data Attestation: I reviewed the patient's radiology results. B/l pleural effusions and evidence of COPD. No acute pathology. - ECG Data Tracing #1 I reviewed this ECG and interpreted as documented below: EKG INTERPRETATION: RHYTHM: NORMAL SINUS RHYTHM VENTRICULAR RATE: 84 BPM DC INTERVAL: 115 MS AND NORMAL QRS DURATION: 85 MS AND NORMAL QT/QTC: 364/406 MS AND NORMAL AXIS: 72 AND NORMAL P WAVES: NORMAL T WAVES: NORMAL ST SEGMENT: NORMAL OTHER: INTERPRETATION: THIS IS A NORMAL EKG. ECG initial impression date: 08/01/16 ECG initial impression time: 18:00 Disposition Clinical Impression: COPD with exacerbation Aspiration into airway Qualifiers: Encounter type: initial encounter Qualified Code(s): T17.908A - Unspecified foreign body in respiratory tract, part unspecified causing other injury, initial encounter Disposition: 02 To [facility] [place] Acute Care Condition: Improved Prescriptions: No Action Cetirizine HCl [Zyrtec] 10 mg PO DAILY PRN #0 cap PRN Reason: ALLERY SYMPTOMS Albuterol Sulfate [Proair Hfa] 1 puff INH QID PRN #0 PRN Reason: PRN ORDERS Fluticasone/Vilanterol [Breo Ellipta 200-25 Mcg INH] 1 puff INH DAILY #0 Melatonin 20 mg PO HS PRN PRN Reason: Insomnia Sertraline HCl 100 mg PO HS #0 tab Amlodipine Besylate 10 mg PO HS #0 tab Oxycodone HCl 5 mg PO BID PRN #0 PRN Reason: PAIN Cyclobenzaprine HCl [Cyclobenzaprine HCl] 10 mg PO BID PRN PRN Reason: Prn Orders Referrals: Jeffrey Crowley MD [Family Provider] - Time of Disposition: 17:05 - Seen By: physician
[2016-08-01] MEDS ORDERED: LEVOFLOXACIN PREMIX 750 MG/150 ML BAG IV SCH (20:17)
[2016-08-01] MEDS ORDERED: MELATONIN 5 MG TABLET PO PRN (20:17)
[2016-08-01] MEDS ORDERED: ALBUTEROL 2.5mg/3ml (0.083%) NEB AEROSOL ONE (20:17)
--- NOTE | 2016-08-01 20:26 | History & Physical Report ---
<Vinnie Reinoso - Last Filed: 08/01/16 20:21> History of Present Illness Date: 08/01/16 Chief complaint: dyspnea HPI: This is a 61 y/o female with a history of COPD not oxygen or steroid dependent. The patient has increased shortness of breath over the past 1 weeki. The patient has a cough productive of green sputum. no fever but sweats no chills. The patient is to the point that any exertion makes her very tired. The patient presents tonight with a CXR that demonstrates chronic COPD changes and small chronic b/l pleural effusions The patient had breast cancer in 1997 resolved and dx with tongue cancer 2 yrs ago with resection of her tongue. The pateint reports a 50 pound weight loss since 2013 and more recently over the past 2 months 10 pound weight loss. The patient will be admitted for mild exacerbation of her COPD and bronchiits. Review of Systems Review of systems: no headache, no change in vision, no ear pain, has chronic sensation of choking when she swallows after her tongue resection. swallow study last year was reported as no evidence of aspiration. The patient has no neck pain, no chest pain, increased dyspnea with any exertion. no pnd, no orthopnea, no abdomen pain, no nausea or vomiting, no change in bm, no edema, no focal neuro complaints. 10 point ROS otherwise negative except for outlined above. PFSH Patient Stated Medical History Cerebrovascular Accident Yes Dysphagia Yes Hypertension Yes Other Cardiology Yes: vasospasms Chronic Obstructive Pulmonary Yes Disease (COPD) Pneumonia Yes Hx Urinary Tract Infection Yes Other Yes: Pyelonephritis Other Musculoskeletal Yes: FX KNEE - NO SURGICAL REPAIR Depression Yes Post Traumatic Stress Disorder Yes Medical History Updates: copd, left breast carcinoma, salivary gland carcinoma base of tonue, hypertension Surgical History: left massectomy, tongue resection, MARIAH, bilateral oophrectomy - Social History Smoking status: Current every day smoker Substance use type: does not use Alcohol intake: former Alcohol intake frequency: does not drink Housing: house Household members: spouse service: No Current occupational status: retired Current residence: Apartment/Private Home Medications Home Medications Medication Instructions Recorded Confirmed Type Amlodipine Besylate 10 mg PO HS #0 tab 05/27/13 08/01/16 History Cetirizine HCl [Zyrtec] 10 mg PO DAILY PRN #0 cap 05/27/13 08/01/16 History Sertraline HCl 100 mg PO HS #0 tab 05/27/13 08/01/16 History Albuterol Sulfate [Proair Hfa] 1 puff INH QID PRN #0 07/26/15 08/01/16 History Fluticasone/Vilanterol [Breo 1 puff INH DAILY #0 06/30/16 08/01/16 History Ellipta 200-25 Mcg INH] Oxycodone HCl 5 mg PO BID PRN #0 06/30/16 08/01/16 History Cyclobenzaprine HCl 10 mg PO BID PRN 08/01/16 08/01/16 History [Cyclobenzaprine HCl] Melatonin 20 mg PO HS PRN 08/01/16 08/01/16 History Allergies Allergy/AdvReac Type Severity Reaction Status Date / Time amoxicillin Allergy Severe HIVES Verified 08/01/16 22:40 clavulanic acid Allergy Severe HIVES Verified 08/01/16 22:40 celecoxib AdvReac Unknown Verified 08/01/16 22:40 Exam Vital Signs: Temp Pulse Resp BP Pulse Ox 96.9 F 89 20 132/82 93 08/01/16 20:00 08/01/16 20:00 08/01/16 20:00 08/01/16 20:00 08/01/16 20:00 Telemetry Rhythm: Sinus Rhythm Height: 1.45 m Weight: 34.6 kg Body Mass Index: 16.5 - Constitutional Present: mild distress, thin, cachectic, cooperative - Routine HEENT Exam Head: Present: normocephalic, atraumatic Eye: Present: EOMI, scleral injection, conjunctivae pink. Absent: conjunctival icterus ENT: Present: mucous membranes dry - Routine Neck Exam Present: supple, full ROM - Routine Respiratory Exam Comments: very diminished without wheezes or rhonchi - Routine Abdominal Exam Present: soft, normoactive bowel sounds, non distended. Absent: tenderness - Routine Extremities Exam Present: no edema, full ROM Results - Labs CBC & Chem 7: 08/01/16 17:37 08/01/16 17:37 - Imaging and Cardiology Chest x-ray Additional comments: sig copd changes without acute infiltrate, bilateal plerual effusion Assessment and Plan (1) COPD with exacerbation Current visit: Yes Status: Acute 08/01/16 20:30 patient with increased dyspnea. very surprisingly dimer neg!. probable mild exacerbation oral prednisone, duoneb, albuterol, reassess in am. not hypoxic. VBG reasuring that no hypercapnea (2) Bronchitis Current visit: Yes Status: Acute 08/01/16 20:31 patient with productive cough. start with levaquin and reassess (3) Tobacco abuse Current visit: Yes Status: Acute 08/01/16 20:31 patient continues to smoke at least 1 ppd. obviously a source of worsening dyspnea. patient aware and not greatly interested instopping (4) History of breast cancer Current visit: Yes Status: Acute 08/01/16 20:32 no current tx. apparently cured (5) History of salivary gland cancer Current visit: Yes Status: Acute 08/01/16 20:32 apparently cured after chemo, ressection. note that patient continues with sensation of dysphagia. consider repeat swallow study while hospitalized. patient lost 10 # over the past 2 months because of concern regarding aspiration (6) Hypertension Current visit: Yes Status: Acute 08/01/16 20:33 continue norvasc if blood presssure stable ovenright DVT Prophylaxis: SCD's, SQ Heparin GI Prophylaxis: Protonix Resuscitation Status: Full Code Hospital Course Summary Disclaimer: The visit summary below is not to be considered part of the above Progress Note. <Santiago Lewis - Last Filed: 08/02/16 09:13> History of Present Illness Date: 08/02/16 [facility] Patient Stated Medical History Cerebrovascular Accident Yes Dysphagia Yes Hypertension Yes Other Cardiology Yes: vasospasms Chronic Obstructive Pulmonary Yes Disease (COPD) Pneumonia Yes Hx Urinary Tract Infection Yes Other Yes: Pyelonephritis Other Musculoskeletal Yes: FX KNEE - NO SURGICAL REPAIR Depression Yes Post Traumatic Stress Disorder Yes Exam Vital Signs: Temp Pulse Resp BP Pulse Ox 96.1 F L 78 16 128/78 92 08/02/16 07:27 08/02/16 07:27 08/02/16 07:45 08/02/16 07:27 08/02/16 07:45 Height: 4 ft 9 in Weight: 35.4 kg Results - Labs CBC & Chem 7: 08/02/16 04:01 08/01/16 21:15 Assessment and Plan (1) COPD with exacerbation Current visit: Yes Status: Acute (2) Bronchitis Current visit: Yes Status: Acute (3) Tobacco abuse Current visit: Yes Status: Acute (4) History of breast cancer Current visit: Yes Status: Acute (5) History of salivary gland cancer Current visit: Yes Status: Acute (6) Hypertension Current visit: Yes Status: Acute Assessment and Plan: This pt was seen and examined at 8:30 AM today. Gayathri states she is feeling much better, unfortunately she still smokes 1 to 1.5 PPD. She had PFT's last year here at [facility] but does not recall her results. She is much better breathing easier had a very good night and is up having her breakfast. VSS NC/AT Thin Chest - occ scattered wheezing. Increased AP diameter. Abd - Soft NT/ND Ext no clubbing or cyanosis Neurologic - Non focal, gait not tested. Labs reviewed. A/P 1) COPD AE - Pt is on Breo and Combivent at home. - Discussed tobacco cessation - she was able to stop in the past "Cold [place]" for 3 years, then tried Wellbutrin several times with no long lasting results. - Does not appear to be ready to quit at this time. - Continue with Duonebs, steroids and Levaquin (Adjusted to Q48H) 2) Multiple neoplasias in the past a) breast b) Salivary gland c) Tongue. Appears to be in remission at this time. Hospital Course Summary Disclaimer: The visit summary below is not to be considered part of the above Progress Note.
[2016-08-01] MEDS: NS 1,000 ML IV SCH (20:32)
[2016-08-01] MEDS: IPRATROPIUM/ALBUTEROL 2.5mg-0.5mg/3ml NEB IH SCH (20:50)
[2016-08-01] MEDS: OXYCODONE IR 5 MG TABLET PO PRN (22:27)
[2016-08-01] MEDS: AMLODIPINE 10 MG TABLET PO SCH (22:28)
[2016-08-01] MEDS: SERTRALINE 100 MG TABLET PO SCH (22:28)
[2016-08-01] MEDS: HEPARIN SUB-Q 5,000 UNITS/0.5 ML INJECTION SQ SCH (22:28)
[2016-08-02] MEDS: NS 1,000 ML IV SCH ×3 (06:12→17:57)
--- NOTE | 2016-08-02 06:38 | Pharmacy Consult- Renal Dosing ---
Pharamcy Consul-Renal Dosing - Laboratory Information 08/01/16 21:15 BUN 15.0 Creatinine 0.6 L - Consult Information Renal Function: The calculated creatinine clearance for this patient is around 32 mL per minute. Dosage of levofloxacin is adjusted to 750mg ivpb q48h. Thanks
[2016-08-02] MEDS ORDERED: LEVOFLOXACIN PREMIX 750 MG/150 ML BAG IV SCH (06:45)
[2016-08-02] MEDS: IPRATROPIUM/ALBUTEROL 2.5mg-0.5mg/3ml NEB IH SCH ×4 (07:53→20:56)
[2016-08-02] MEDS: PredniSONE 20 MG TABLET PO SCH (08:58)
[2016-08-02] MEDS: HEPARIN SUB-Q 5,000 UNITS/0.5 ML INJECTION SQ SCH ×2 (08:58→22:47)
[2016-08-02] MEDS: PANTOPRAZOLE 40 MG INJECTION IVP SCH (08:58)
[2016-08-02] MEDS: FLUTICASONE/VILANTEROL 100/25mcg INHALER IH SCH (10:39)
[2016-08-02] MEDS: AMLODIPINE 10 MG TABLET PO SCH (22:46)
[2016-08-02] MEDS: SERTRALINE 100 MG TABLET PO SCH (22:46)
[2016-08-02] MEDS: OXYCODONE IR 5 MG TABLET PO PRN (23:32)
[2016-08-03] MEDS: NS 1,000 ML IV SCH ×2 (04:23→18:15)
[2016-08-03] MEDS: HEPARIN SUB-Q 5,000 UNITS/0.5 ML INJECTION SQ SCH ×2 (08:45→21:26)
[2016-08-03] MEDS: PredniSONE 20 MG TABLET PO SCH (08:45)
[2016-08-03] MEDS: PANTOPRAZOLE 40 MG INJECTION IVP SCH (08:46)
[2016-08-03] MEDS ORDERED: MAGNESIUM SULFATE 4 MEQ/ML IV SCH (09:15)
[2016-08-03] MEDS ORDERED: POTASSIUM CHLORIDE 20 MEQ/15 ML ORAL LIQUID PO ONE (09:15)
[2016-08-03] MEDS: FLUTICASONE/VILANTEROL 100/25mcg INHALER IH SCH (09:37)
[2016-08-03] MEDS ORDERED: NS IV ONE (10:00)
[2016-08-03] MEDS ORDERED: MAGNESIUM SULFATE IV ONE (10:00)
--- NOTE | 2016-08-03 13:29 | XRay Report ---
INDICATION: dyspnea PROCEDURE: CHEST 2-VIEWS UPRIGHT (PA & LAT) Encounter: Initial COMPARISON: Chest CT dated June 11, 2016 FINDINGS: Severe bullous emphysema. There is an increased markings in the right lower lobe. No pneumothorax or definite pleural effusion. Bilateral pleural thickening. Heart size and mediastinal contours are stable. Increased pulmonary vascular markings suggesting pulmonary edema. Impression: Severe bullous emphysema with evidence of mild pulmonary edema. .
[2016-08-03] MEDS: IPRATROPIUM AEROSOL SCH ×2 (15:47→20:52)
--- NOTE | 2016-08-03 17:51 | Progress Note ---
Subjective: Pt states she is feeling well today. Has been a bit tachycardic. CXR - showed severe bulluos emphysema. No infiltrates. Objective Vital signs: Temp Pulse Resp BP Pulse Ox 96.4 F L 93 18 114/72 97 08/03/16 15:30 08/03/16 16:00 08/03/16 15:47 08/03/16 15:30 08/03/16 15:47 Rhythm: Normal Sinus Rhythm Weight: 35.5 kg - Constitutional Present: no acute distress, thin, cachectic, cooperative - Routine HEENT Exam Head: Present: normocephalic, atraumatic Eye: Present: EOMI, PERRL - Routine Respiratory Exam Present: CTA bilaterally, wheezes - Routine Cardiovascular Exam Present: RRR, no murmur - Routine Abdominal Exam Present: soft, non distended, non tender - Routine Extremities Exam Absent: cyanosis, clubbing, edema - Routine Skin Exam Present: intact - Routine Neurological Exam Present: alert, oriented X3 - Routine Psychiatric Exam Present: normal affect, cooperative, good insight Results - Labs CBC & Chem 7: 08/03/16 03:54 08/03/16 03:54 Assessment and Plan (1) COPD with exacerbation Current visit: Yes Status: Acute 08/01/16 20:30 patient with increased dyspnea. very surprisingly dimer neg!. probable mild exacerbation oral prednisone, duoneb, albuterol, reassess in am. not hypoxic. VBG reasuring that no hypercapnea (2) Bronchitis Current visit: Yes Status: Acute 08/01/16 20:31 patient with productive cough. start with levaquin and reassess (3) Tobacco abuse Current visit: Yes Status: Acute 08/01/16 20:31 patient continues to smoke at least 1 ppd. obviously a source of worsening dyspnea. patient aware and not greatly interested instopping (4) History of breast cancer Current visit: Yes Status: Acute 08/01/16 20:32 no current tx. apparently cured (5) History of salivary gland cancer Current visit: Yes Status: Acute 08/01/16 20:32 apparently cured after chemo, ressection. note that patient continues with sensation of dysphagia. consider repeat swallow study while hospitalized. patient lost 10 # over the past 2 months because of concern regarding aspiration (6) Hypertension Current visit: Yes Status: Acute 08/01/16 20:33 continue norvasc if blood presssure stable ovenright Assessment and Plan: Gayathri states she is feeling much better, unfortunately she still smokes 1 to 1.5 PPD. She had PFT's last year here at [facility] but does not recall her results, I was unable to find that report in the [employer] system. She is much better breathing easier had a very good night and is up having her breakfast. A/P 1) COPD AE, in a pt with severe bulluous emphysema. - Pt is on Breo and Combivent at home. - Discussed tobacco cessation - she was able to stop in the past "Cold [place]" for 3 years, then tried Wellbutrin several times with no long lasting results. - Does not appear to be ready to quit at this time. - Continue with Duonebs, steroids and Levaquin (Adjusted to Q48H) 2) Multiple neoplasias in the past a) breast b) Salivary gland c) Tongue. Appears to be in remission at this time. Sepsis Assessment - Evaluation Sepsis screening result: No Definite Risk Hospital Course Summary Disclaimer: The visit summary below is not to be considered part of the above Progress Note.
[2016-08-03] MEDS: IPRATROPIUM/ALBUTEROL 2.5mg-0.5mg/3ml NEB IH SCH (18:30)
[2016-08-03] MEDS ORDERED: LEVOFLOXACIN PREMIX 750 MG/150 ML BAG IV SCH (20:00)
[2016-08-03] MEDS: AMLODIPINE 10 MG TABLET PO SCH (21:27)
[2016-08-03] MEDS: SERTRALINE 100 MG TABLET PO SCH (21:27)
[2016-08-04] MEDS: OXYCODONE IR 5 MG TABLET PO PRN (00:13)
[2016-08-04] MEDS: IPRATROPIUM AEROSOL SCH ×3 (03:00→15:11)
[2016-08-04] MEDS: NS 1,000 ML IV SCH ×2 (05:55→14:56)
[2016-08-04] MEDS: PredniSONE 20 MG TABLET PO SCH (08:15)
[2016-08-04] MEDS: HEPARIN SUB-Q 5,000 UNITS/0.5 ML INJECTION SQ SCH (08:16)
[2016-08-04] MEDS: PANTOPRAZOLE 40 MG INJECTION IVP SCH (08:16)
[2016-08-04] MEDS: FLUTICASONE/VILANTEROL 100/25mcg INHALER IH SCH (08:18)
--- NOTE | 2016-08-04 13:01 | Pharmacy Consult- Renal Dosing ---
Pharamcy Consul-Renal Dosing - Laboratory Information 08/01/16 08/02/16 08/03/16 21:15 20:14 03:54 BUN 15.0 8.0 D 9.0 Creatinine 0.6 L 0.6 L 0.5 L 08/04/16 03:54 BUN 10.0 Creatinine 0.6 L RENAL DOSING: Today's SCr = 0.6 mg/dl. Calculated CrCl ~ 33 ml/min. Continue the Levaquin as currently ordered, 750 mg iv every 48 hours. Keagan Harding [facility]
--- NOTE | 2016-08-04 13:07 | Fluoroscopy Report ---
Indication:R/O ASPIRATION Procedure:FL barium swallow modified MODIFIED BAR. SWALLOW STUDY: Videofluoroscopy was performed in conjunction with a freight representative from speech pathology and a separate report and recommendations will be provided. Varying gradations of barium from thin to solid were administered. Aspiration was noted with all given consistencies. No AP imaging was obtained. Impression: Aspiration with all given consistencies of barium. Please see the speech pathology report for additional details and recommendations. Fluoroscopy dose: 3.85 mGy (Cumulative air kerma) Madhu Avila RPA/VIDA performed this under my direct supervision. .
--- NOTE | 2016-08-04 16:00 | Discharge Summary ---
Discharge Plan - Med Rec/Dispo [place] Instructions: COPD (Chronic Obstructive Pulmonary Disease) (GEN) Prescriptions: New Levofloxacin [Levaquin] 750 mg PO ACB #3 Ranitidine [Zantac] 150 mg PO HS #30 PredniSONE [Deltasone] 10 mg PO WB #10 Continue Cetirizine HCl [Zyrtec] 10 mg PO DAILY PRN #0 cap PRN Reason: ALLERY SYMPTOMS Albuterol Sulfate [Proair Hfa] 1 puff INH QID PRN #0 PRN Reason: PRN ORDERS Fluticasone/Vilanterol [Breo Ellipta 200-25 Mcg INH] 1 puff INH DAILY #0 Melatonin 20 mg PO HS PRN PRN Reason: Insomnia Sertraline HCl 100 mg PO HS #0 tab Amlodipine Besylate 10 mg PO HS #0 tab Oxycodone HCl 5 mg PO BID PRN #0 PRN Reason: PAIN Cyclobenzaprine HCl 10 mg PO BID PRN PRN Reason: Prn Orders Discharge Instructions/Outpatient Orders: Final Provider Discharge Instructions Location: Determined By Patient - Disposition 01 Discharged Home, Self-Care
--- NOTE | 2016-08-04 16:06 | Discharge Summary ---
Discharge Information Date of admission: 08/01/16 19:26 Attending Physician: Santiago Lewis MD Primary care physician: Jeffrey Crowley MD - Discharge Diagnosis (1) COPD with exacerbation Status: Resolved (2) Bronchitis Status: Resolved (3) Tobacco abuse Status: Chronic (4) History of breast cancer Status: Resolved (5) History of salivary gland cancer Status: Resolved (6) Hypertension Status: Chronic - Laboratory Labs: 08/04/16 03:54 08/04/16 03:54 - Microbiology Microbiology 08/03/16 06:03 Sputum, Expectorated Gram Stain - Final 08/03/16 06:03 Sputum, Expectorated Sputum Culture - Preliminary Early growth History of Present Illness HPI: This is a 61 y/o female with a history of COPD not oxygen or steroid dependent. The patient has increased shortness of breath over the past 1 weeki. The patient has a cough productive of green sputum. no fever but sweats no chills. The patient is to the point that any exertion makes her very tired. The patient presents tonight with a CXR that demonstrates chronic COPD changes and small chronic b/l pleural effusions The patient had breast cancer in 1997 resolved and dx with tongue cancer 2 yrs ago with resection of her tongue. The pateint reports a 50 pound weight loss since 2013 and more recently over the past 2 months 10 pound weight loss. The patient will be admitted for mild exacerbation of her COPD and bronchiits. Hospital Course Hospital course: This is a 61 YO female with very advanced emphysema (Bullous) that still smokes. She was admitted with acute COPD exacerbation and improved rather rapidly. She is not on home O2 yet. PFT's on [employer] were unretrievable (just upgraded version). Pt was educated on the need to stop smoking. She is much better breathing easier had a very good night and is up having her breakfast. A/P 1) COPD AE, in a pt with severe bulluous emphysema. - Pt is on Breo and Combivent at home, will continue - Discussed tobacco cessation - she was able to stop in the past "[place]" for 3 years, then tried Wellbutrin several times with no long lasting results. - Does not appear to be ready to quit at this time. - Continue Levaquin 3 more doses (every other day) - Taper Deltasona over the next week - Prevention of PUD with Ranitidine 2) Multiple neoplasias in the past a) breast b) Salivary gland c) Tongue. Pt had a swallowing study yesterday and she needs to resume her exercises and for now will use thickened liquids. Appears to be in remission at this time. Discharge Plan - Med Rec/Dispo [place] Instructions: COPD (Chronic Obstructive Pulmonary Disease) (GEN) Prescriptions: New Levofloxacin [Levaquin] 750 mg PO ACB #3 Ranitidine [Zantac] 150 mg PO HS #30 PredniSONE [Deltasone] 10 mg PO WB #10 Continue Cetirizine HCl [Zyrtec] 10 mg PO DAILY PRN #0 cap PRN Reason: ALLERY SYMPTOMS Albuterol Sulfate [Proair Hfa] 1 puff INH QID PRN #0 PRN Reason: PRN ORDERS Fluticasone/Vilanterol [Breo Ellipta 200-25 Mcg INH] 1 puff INH DAILY #0 Melatonin 20 mg PO HS PRN PRN Reason: Insomnia Sertraline HCl 100 mg PO HS #0 tab Amlodipine Besylate 10 mg PO HS #0 tab Oxycodone HCl 5 mg PO BID PRN #0 PRN Reason: PAIN Cyclobenzaprine HCl 10 mg PO BID PRN PRN Reason: Prn Orders Discharge Instructions/Outpatient Orders: Final Provider Discharge Instructions Location: Determined By Patient - Disposition 01 Discharged Home, Self-Care
[2016-08-04] MEDS ORDERED: RANITIDINE 150 MG TABLET PO SCH (22:00)
[2016-08-05] MEDS ORDERED: LEVOFLOXACIN 750 MG TABLET PO SCH (06:30)
== END 2016-08-04 16:56 | disposition home or self-care (01) | DRG 192 ==
LOC: ED 16:03 → MED 19:26
PROVIDERS: ADMIT Emergency Medicine; ATTEND Internal Medicine